=== PATIENT | female | born 1975 | race Caucasian/White ===

== ENCOUNTER 2020-07-21 18:10 | Emergency (ER) | payer OTHER, SELFPAY ==
[2020-07-21 19:38] VITALS: BP 143/69; PULSE 69; RESP 18; TEMP 37.1; O2SAT 100; BMI 29.0
--- NOTE | 2020-07-21 20:46 | ED_ITS ---
HPI - Extremity Problem General Chief complaint: Extremity Injury, Upper Stated complaint: CAST REMOVAL Time Seen by Provider: 07/21/20 20:46 History of Present Illness HPI Narrative: patient has a left cast that she got wet called the orthopedic doctor and referred to the emergency department to remove it and place a new splint. Patient with a history of 1st digit fracture. No pain no trauma Related Data Allergies Allergy/AdvReac Type Severity Reaction Status Date / Time morphine Allergy Unknown Dizziness Verified 07/21/20 19:41 Review of Systems Review of Systems: Constitutional : No Weight loss, No Fever, No Chills, No Night Sweats, No Fatigue, No Malaise ENT/Mouth : No Hearing loss, No Ear Pain, No Nasal Congestion, No Sinus Pain, No Hoarseness, No sore throat, No Rhinorrhea, No Swallowing Difficulty Eyes: No Eye Pain, No Swelling, No Redness, No Foreign Body, No Discharge, No Vision Changes Cardiovascular : No Chest Pain, No SOB, No Dyspnea on Exertion, No Orthopnea, No Edema, No Palpitations Respiratory : No Cough, No Sputum, No Wheezing, No Smoke Exposure, No Dyspnea Gastrointestinal : No Nausea, No Vomiting, No Diarrhea, No Constipation, No abdominal Pain, No Hematochezia, No Melena Genitourinary : no irregular bleeding, No Dysuria, No Urinary Frequency, No Hematuria, No Urinary Incontinence, No Urgency, No Flank Pain, No Urinary Flow Changes, No Hesitancy Musculoskeletal : No joint pain, No Myalgias, No Joint Swelling Skin : No Skin Lesions, No rash Neuro : No Weakness, No Numbness, No Paresthesias, No Loss of Consciousness, No Dizziness, No Headache Psych : No Anxiety/Panic, No Depression, No SI/HI/AH/VH, No Social Issues, Heme/Lymph: No Bruising, No Bleeding,No Lymphadenopathy Endocrine : No Polyuria, No Polydipsia, No Temperature Intolerance Yes all other systems are reviewed and are negative PMFSH Past Medical History Medical History Disorder of ligament of foot Rotator cuff arthropathy of both shoulders Surgical History Total knee replacement status Social History Social History Alcohol intake: never Smoked in Last 30 Days: No Use of substances other than those prescribed or required for medical reasons: No Advance Directives: No Advance Directives Information Provided: Yes Physical Exam Vital Signs and I&O and Narrative: Vital Signs and I&O: Vital Signs Temp 98.7 F 07/21/20 19:38 Pulse 69 07/21/20 19:38 Resp 18 07/21/20 19:38 BP 143/69 H 07/21/20 19:38 Pulse Ox 100 07/21/20 19:38 Intake & Output 07/21/20 07/21/20 07/22/20 06:59 18:59 06:59 Weight 83.915 kg Body Mass Index 29.0 reviewed Appearance: Alert. Oriented X3. No acute distress. Eyes: Pupils equal, round and reactive to light. ENT: Pharynx normal. Neck: Normal inspection. Neck supple. CVS: Normal heart rate and rhythm. Pulses normal. Respiratory: No respiratory distress. Breath sounds normal. Abdomen: Soft and nontender. Skin: Skin warm and dry. Normal skin color. Normal skin turgor. Extremities: No lower extremity edema. No lower extremity edema. left arm with neurovascularly intact. Left cast in place. No erythema Neuro: Oriented X 3. No motor deficit. No sensory deficit. Procedures Cast Removal Reason for procedure: wet Cut saw used: Yes Cast procedure: removal Post Removal Neuro Exam: intact Post Removal Vascular Exam: intact Patient Tolerated Procedure: well Orthopedic Splinting/Casting Injury #1: Side: left Upper Extremity Injury Location: hand Upper Extremity Immobilizer: thumb spica Additional Comments: post splint neurovascular intact. Was placed by tech Discharge Plan Discharge Clinical Impression: Cast removal Patient Disposition: Home, Self-Care Instructions: Cast Care (ED) Additional Instructions: Thank you for visiting the emergency department today. If your symptoms worsen or do not resolve completely please return to the emergency department immediately or call 911. if he have any questions please call your primary care physician please see the orthopedic doctor tomorrow for splint removal and cast placement Referrals: [facility] [Provider Group] - 2 days Interventions: ED Discharge Assessment Last Done: 07/21/20 21:19 Discharge Date/Time: 07/21/20 21:25
--- NOTE | 2020-07-21 20:50 | PC.NURSE ---
PT CASTE REMOVED BY DR JC AT BEDSIDE THUMB SPICA ORDERED.
== END 2020-07-21 21:25 | disposition home or self-care (01) ==
PROVIDERS: Emergency Provider Emergency Medicine
DX: S69.92XA Unspecified injury of left wrist, hand and finger(s), initial encounter (principal); X58.XXXA Exposure to other specified factors, initial encounter; Y93.9 Activity, unspecified; Y92.9 Unspecified place or not applicable; Y99.9 Unspecified external cause status
CPT/HCPCS: 29125; 99284

== ENCOUNTER → 2020-08-11 09:18 | Outpatient (BNVA) | payer OTHER, SELFPAY | PROVIDERS: Visit Provider Orthopaedic Surgery | DX: M17.12 Unilateral primary osteoarthritis, left knee (principal); Z88.6 Allergy status to analgesic agent | CPT/HCPCS: 20610; 99212; J1040 ==

== ENCOUNTER → 2020-08-24 11:33 | Outpatient (BNVA) | payer OTHER, SELFPAY | PROVIDERS: Visit Provider Orthopaedic Surgery | DX: Z76.89 Persons encountering health services in other specified circumstances (principal) ==

== ENCOUNTER 2022-11-03 12:55 | Outpatient (REF) | payer OTHER, SELFPAY ==
--- NOTE | ~2022-11-03 | XR_ITS ---
EXAMINATION: XR KNEE, RIGHT XR KNEE, LEFT XR KNEE AP STANDING CLINICAL INFORMATION: Pain. COMPARISON: Radiographs dated 05/16/2019. TECHNIQUE: Lateral and axial views of the right knee were obtained. Lateral and axial views of the left knee were obtained. AP bilateral standing view of the knees was obtained. FINDINGS: Prosthetic components of the right total knee arthroplasty are appropriately aligned without periprosthetic fracture or lucency. No component migration. No joint effusion. The lateral and medial joint space compartments of the left knee are well-maintained. No fracture or dislocation is seen. There is no significant varus or valgus configuration noted bilaterally. XR/XR knee RT 2V IMPRESSION: 1. Appropriate alignment of the right total knee arthroplasty without evidence of complications. 2. Unremarkable views of the left knee. 3. No significant varus or valgus configuration is seen bilaterally.
--- NOTE | ~2022-11-03 | XR_ITS ---
EXAMINATION: XR KNEE, RIGHT XR KNEE, LEFT XR KNEE AP STANDING CLINICAL INFORMATION: Pain. COMPARISON: Radiographs dated 05/16/2019. TECHNIQUE: Lateral and axial views of the right knee were obtained. Lateral and axial views of the left knee were obtained. AP bilateral standing view of the knees was obtained. FINDINGS: Prosthetic components of the right total knee arthroplasty are appropriately aligned without periprosthetic fracture or lucency. No component migration. No joint effusion. The lateral and medial joint space compartments of the left knee are well-maintained. No fracture or dislocation is seen. There is no significant varus or valgus configuration noted bilaterally. XR/XR knee standing BI IMPRESSION: 1. Appropriate alignment of the right total knee arthroplasty without evidence of complications. 2. Unremarkable views of the left knee. 3. No significant varus or valgus configuration is seen bilaterally.
--- NOTE | ~2022-11-03 | XR_ITS ---
EXAMINATION: XR KNEE, RIGHT XR KNEE, LEFT XR KNEE AP STANDING CLINICAL INFORMATION: Pain. COMPARISON: Radiographs dated 05/16/2019. TECHNIQUE: Lateral and axial views of the right knee were obtained. Lateral and axial views of the left knee were obtained. AP bilateral standing view of the knees was obtained. FINDINGS: Prosthetic components of the right total knee arthroplasty are appropriately aligned without periprosthetic fracture or lucency. No component migration. No joint effusion. The lateral and medial joint space compartments of the left knee are well-maintained. No fracture or dislocation is seen. There is no significant varus or valgus configuration noted bilaterally. XR/XR knee LT 2V IMPRESSION: 1. Appropriate alignment of the right total knee arthroplasty without evidence of complications. 2. Unremarkable views of the left knee. 3. No significant varus or valgus configuration is seen bilaterally.
== END 2022-11-03 12:56 | disposition home or self-care (01) ==
LOC: HO.HOSX 12:55
PROVIDERS: Visit Provider Physician Assistant
DX: M17.12 Unilateral primary osteoarthritis, left knee (principal); M22.2X2 Patellofemoral disorders, left knee; M25.561 Pain in right knee
CPT/HCPCS: 73560; 73565; 99212

== ENCOUNTER 2022-11-15 07:21 | Outpatient (REF) | payer OTHER, SELFPAY ==
--- NOTE | ~2022-11-15 | MR_ITS ---
EXAMINATION: MR KNEE WITHOUT CONTRAST, LEFT CLINICAL INFORMATION: Severe left knee pain with instability. Pain and swelling. Osteoarthritis. COMPARISON: Most recent left knee radiographs dated 11/03/2022. TECHNIQUE: MRI of the knee without contrast was performed using routine sequences on a high-field scanner. FINDINGS: MENISCI: Medial Meniscus: Intact. Lateral Meniscus: Increased T2 signal along the tibial articular surface and inner margin of the posterior horn and root, consistent with irregular tearing. LIGAMENTS: Cruciate: Intact. Collateral: Intact. EXTENSOR MECHANISM: Intact quadriceps and patellar tendons. Normal patellofemoral alignment. ARTICULAR CARTILAGE/BONE: Patellofemoral Compartment: Full-thickness articular cartilage fissuring with underlying subchondral cystic change at the inferior aspect of the patellar median ridge. Central trochlea full-thickness articular cartilage loss with signal heterogeneity. Tiny marginal osteophytes. Medial Compartment: Mild articular cartilage signal heterogeneity with tiny marginal osteophytes. Lateral Compartment: Mild articular cartilage signal heterogeneity with tiny marginal osteophytes. Degenerative cystic change within the tibial spine. JOINT FLUID AND BURSAE: Trace joint effusion and trace Rahman's cyst. MR/MR knee LT wo con IMPRESSION: 1. Irregular tearing along the tibial articular surface and inner margin of the lateral meniscus posterior horn and root. 2. Mild tricompartmental osteoarthritis. Trace joint effusion and trace Rahman's cyst.
== END 2022-11-15 07:22 | disposition home or self-care (01) ==
LOC: HO.MRI 07:21
PROVIDERS: Visit Provider Physician Assistant
DX: M17.12 Unilateral primary osteoarthritis, left knee (principal); M23.92 Unspecified internal derangement of left knee
CPT/HCPCS: 73721

== ENCOUNTER → 2022-11-23 10:15 | Outpatient (BNVA) | payer OTHER, SELFPAY | PROVIDERS: Visit Provider Orthopaedic Surgery | DX: M17.12 Unilateral primary osteoarthritis, left knee (principal); M54.16 Radiculopathy, lumbar region; Z96.651 Presence of right artificial knee joint | CPT/HCPCS: 99212 ==

== ENCOUNTER → 2023-02-26 09:44 | Outpatient (BNVA) | payer OTHER, SELFPAY | PROVIDERS: Visit Provider Orthopaedic Surgery | DX: M22.42 Chondromalacia patellae, left knee (principal); M54.16 Radiculopathy, lumbar region; Z96.659 Presence of unspecified artificial knee joint | CPT/HCPCS: 99212 ==

== ENCOUNTER 2023-03-21 11:53 | Day surgery (SDC) | payer OTHER, SELFPAY ==
--- NOTE | 2023-03-20 09:50 | HO.ANESPROP2 ---
Documented by User: Coleen Belcher NP 03/20/23 09:51 HPI - Anesthesia Eval Consult details Narrative: 48yo F for Left Knee Arthroscopy PMFSH Active Problems Active Problems: All Active Problems (Updated 02/26/23 @ 11:39 by Shane Patel) Chondromalacia of left patellofemoral joint (Acute) Internal derangement of left knee (Acute) Lumbar radiculopathy (Acute) Patellofemoral syndrome, left (Acute) Hx of total knee arthroplasty (Acute) Internal derangement of knee (Acute) Primary osteoarthritis of left knee (Acute) Past Medical History Medical History Disorder of ligament of foot Rotator cuff arthropathy of both shoulders Surgical History Surgical History Hx of hand surgery (~01/2023) Total knee replacement status Social History Social History Alcohol intake: never Patient Tobacco Use Status: Never used Tobacco Advance Directives: No Advance Directives Information Provided: Yes Current occupational status: unemployed Current occupation: Right Handed Meds Allergies Allergy/AdvReac Type Severity Reaction Status Date / Time morphine Allergy Unknown Dizziness Verified 11/03/22 13:18 lidocaine Allergy burning of Verified 11/03/22 13:19 skin Exam Exam Date and Time: March 20, 2023 0950 Assessment and Plan Assessment Anesthesia Assessment: Chart Reviewed Documented by User: Orquidea Hugo MD 03/21/23 14:58 PMFSH Past Medical History Medical History Disorder of ligament of foot Rotator cuff arthropathy of both shoulders Family History Family history of problems with anesthesia: No Surgical History Surgical History Hx of hand surgery (~01/2023) Total knee replacement status History of Problems with Anesthesia: Yes (ponv, does not want scop patch ) Social History Social History Alcohol intake: never Patient Tobacco Use Status: Never used Tobacco Advance Directives: No Advance Directives Information Provided: Yes Current occupational status: unemployed Current occupation: Right Handed Meds Allergies Allergy/AdvReac Type Severity Reaction Status Date / Time morphine Allergy Unknown Dizziness Verified 11/03/22 13:18 lidocaine Allergy burning of Verified 11/03/22 13:19 skin Exam Airway Mallampati Class: III TM Dist: <=3cm Neck ROM: Full Heart: rrr Lungs: cta Assessment and Plan Assessment Anesthesia Assessment: Anesthesia Plan Discussed Final Anesthetic Review Family History of Problems with Anesthesia: No History of Problems with Anesthesia: Yes (ponv, does not want scop patch ) NPO: Yes ASA Class: II Final Preanesthetic Review: No Changes in Pt Med Stat, Meds/Allgs Chart Reviewed, Consent Obtained/Reviewed and Anes Risks/Benef Reviewed Patient Risk: Low Procedure Risk: Low Anesthetic Plan Anesthetic Plan: GA Disposition: Standard PACU
[2023-03-21] VITALS (8 sets, daily range): BP systolic 120–132; BP diastolic 73–89; PULSE 81–96; RESP 16–18; TEMP 36.7–37.4; O2SAT 93–98; BMI 29.2
[2023-03-21 12:26] LABS: UPreg QC Valid YES; Urine Pregnancy NEGATIVE (NEGATIVE)
[2023-03-21] MEDS: Lactated Ringers 1,000 ML 100 ML IVCONT (12:42)
--- NOTE | 2023-03-21 14:56 | MHC.SHP ---
Pre-Procedural Eval Section A Date of Service: 03/21/23 The patient is an INPATIENT: No Changes since office visit: No Cold of Flu in the past 2 weeks, No New Medical Problems, No Changes in Medication and No Patient answered all questions The History & Physical has been completed within 30 days and I have reviewed it.: Yes Section B Chief Complaint: Chondromalacia, left knee Allergies: Allergies Allergy/AdvReac Type Severity Reaction Status Date / Time morphine Allergy Unknown Dizziness Verified 11/03/22 13:18 lidocaine Allergy burning of Verified 11/03/22 13:19 skin Plan I have reviewed the history and physical and performed a pertinent physical examination on my patient. No changes have occurred unless specified. Time Spent With Patient Time: Total time managing care of this patient today ____ minutes.
--- NOTE | 2023-03-21 16:05 | P.BOP_ITS ---
Brief Operative Note Date of Service: 03/21/23 Pre-op diagnosis: Left PF chondromalacia Post-op diagnosis: other (Left PF OA) Procedure: Chondroplasty left knee Surgeon: Germain Whaley MD Anesthesia: GETA and local Was an Manufacturing Maintenance Manager used for this Procedure?: No Estimated blood loss (mL): 1 Tourniquet time (min): 13 IV fluids (mL): 500 Pathology: none sent Condition: stable Disposition: PACU
--- NOTE | 2023-03-21 16:09 | P.OP_ITS ---
Operative Note Operative Note Date of Service: 03/21/23 Narrative: Date of Service: 03/21/23 Pre-op diagnosis: Left PF chondromalacia Post-op diagnosis: other (Left PF OA) Procedure: Chondroplasty left knee Surgeon: Germain Whaley MD Anesthesia: GETA and local Was an Communication Specialist used for this Procedure?: No Estimated blood loss (mL): 1 Tourniquet time (min): 13 IV fluids (mL): 500 Pathology: none sent Condition: stable Disposition: PACU Procedure in detail: Patient was brought to the operating room placed supine on the arthroscopic table and prepped and draped in standard sterile fashion. A time-out was called to identify proper site proper procedure proper surgeon and IV antibiotics per weight were administered. I began by exsanguinating the limb and insufflating tourniquet to 300 mm Hg. Then made a standard anterolateral stab incision. knee was insufflated with water and 30 degree arthroscope was placed. There was grade 3 and 4 changes to the lateral half of the central patellar facet. THere was corresponding changes to the trochlea. The suprapatellar pouch was clean and the gutters were clean. I descended into the medial compartment where I made my medial portal under direct visualization. There was a normal body and posterior horn of the medial meniscus. The root was intact and there were no changes the ana articualr cartialge in the medial comaprtment. with some scattered grade 2 changes throughout the medial compartment. The notch was examined and the ACL was intact. I placed the leg in a [id number] position and entered the lateral compartment. There was very mild fraying of the posteromedial aspect of the meniscus just adjacnt to the ACL. There was softening of the tibial plateau laterally with G1 fibrillations. I debrided the meniscal fraying with a shaver. I then returned to the anterior compartment. I used a shave and the ablation device to remove loose cartilage and stabilize the trochlear cartilage adjacent to the defect. Final pictures were taken and all instrumentation and closed the portals with skin glue. 25 mL of 2% bupivacaine with epinephrine was injected into the joint and the surrounding soft tissues. Patient was then placed in sterile dressing extubated brought recovery room stable condition. There were no known complications.
[2023-03-21] MEDS: ondansetron HCL 4 MG/2 ML VIAL IVPUSH (16:11)
[2023-03-21] MEDS: oxyCODONE HCl Immed Release 5 MG TABLET PO (16:14)
[2023-03-21] MEDS: fentaNYL citrate/PF 100 MCG/2 ML VIAL 25 MCG IVPUSH (16:16)
== END 2023-03-21 17:24 | disposition home or self-care (01) ==
LOC: HO.SSS 11:53
PROVIDERS: Nurse Practitioner; Visit Provider Orthopaedic Surgery
PROC: (CPT 29870; principal; 2023-03-21 14:00)
DX: M22.42 Chondromalacia patellae, left knee (principal); M17.12 Unilateral primary osteoarthritis, left knee; M23.92 Unspecified internal derangement of left knee; Z96.651 Presence of right artificial knee joint; M54.16 Radiculopathy, lumbar region; Z88.8 Allergy status to other drugs, medicaments and biological substances
CPT/HCPCS: 29877; 81025; J0171; J0690; J1100; J2250; J2405; J2795; J3010

== ENCOUNTER → 2023-03-26 14:43 | Outpatient (BNVA) | payer OTHER, SELFPAY | PROVIDERS: PCP Psychiatry & Neurology Psychiatry; Visit Provider Physician Assistant | DX: M22.42 Chondromalacia patellae, left knee (principal) | CPT/HCPCS: 99212 ==

== ENCOUNTER 2023-04-10 10:00 | Outpatient (RCR) | payer OTHER, SELFPAY ==
--- NOTE | 2023-03-29 16:12 | MHC.PT.EP ---
[facility] [place] Office [place] Office [place] Office [address] [phone] F: [phone] F: [phone] F: [phone] F: [phone] Physical Therapy Plan of Care Date of Evaluation: Date of Surgery: 03/21/23 Diagnosis: S/P L knee Chondromalacia patella L knee Assessment: Nicole is a 48 yo female s/p L . Pt presents on PT examination with impairments such as decreased L knee ROM, impaired L knee strength due to pain, altered gait pattern with B crutches, decreased L WB during gait, and knee joint pain anterior/posterior knee. Leading to functional limitations such a decreased activity tolerance, difficulty with standing, difficulty with sitting, interrupted sleep due to pain, inability to bend/squat. Pt to benefit from skilled PT to address aforementioned impairments and functional limitations. PT to include knee ROM, stretching, strengthening, gait training with LRAD, hot/cold pack, US, pt educations, HEP, and STM. Frequency and Duration: The patient will be seen 2x week for 6 weeks Short Term Goals: In 3 weeks... 1. Pt will be I with HEP demonstrated by 100% return demonstration to improve functional mobility 2. Pt will increase knee flexion ROM to 125 degrees to improve stair negotiation 3. Pt will improve knee extension ROM to 0 degrees in order to improve terminal stance during gait Manager Business Process Goals: In 6 weeks... 1. Pt will improve gross LLE strength by 1 MMT point in order to improve activity tolerance/endurance 2. Pt will be able to ambulate without use of crutches in order to regain normalized gait pattern and perform ADLs with I 3. Pt will be able to stand without crutches for 2 hours without rest breaks in order to return to work Treatment Plan: Modalities to reduce pain, spasms and effusion. Manual therapy to restore motion and function. Therapeutic exercise to improve strength and flexibility. Neuromuscular re-education for posture and balance. Therapeutic activities to return to functional activities of daily living. Electronically signed by: Ramya Colbert PT DPT Please sign and return to therapist. Thank you for your referral.
--- NOTE | 2023-05-03 11:33 | MHC.PT.DC ---
[facility] [place] Office [place] Office [place] Office [address]ie [address] [facility] [phone] F: [phone] F: [phone] F: [phone] F: [phone] Physical Therapy Discharge Report Diagnosis: S/P L knee Chondromalacia patella L knee Date of Surgery: 03/21/23 Date of Evaluation: 03/29/23 Date of Discharge: 05/03/23 Treatments to Date: 2 Cancellations to Date: 5 No Shows to Date: 3 Discharge Status: Visit Non-compliance Discharge Summary: Nicole attended only 1 treatment visit after her evaluation. Her last treatment with PT was on 04/10/23. She has had 5 cancelation and 3 no shows. Called pt to inform them about visit non compliance and therefore d/c from PT. Pt was very upset with this and hung up on lockstitch front maker. At this point of time she is being d/c from PT for non compliance. Electronically signed by: Ramya Colbert PT DPT Please sign and return to therapist. Thank you for your referral.
== END 2023-05-03 11:33 | disposition home or self-care (01) ==
LOC: HO.PT 10:00
PROVIDERS: PCP Psychiatry & Neurology Psychiatry; Visit Provider Physician Assistant
DX: M22.42 Chondromalacia patellae, left knee (principal); A31.2 Disseminated mycobacterium avium-intracellulare complex (DMAC)
CPT/HCPCS: 97110; 97112; 97116; 97161; 97162; 97530

== ENCOUNTER 2023-04-30 12:07 | Outpatient (AMB) | payer OTHER, SELFPAY ==
--- NOTE | 2023-04-30 12:19 | A.OFFVIS_ITS ---
Intake Intake Visit Reasons: PO LT Knee 03/21/23NE Intake Note: Nicole is a 48 year old female who presents today for a post operative appointment s/p Left Knee Arthroscopy 03/21/23. Patient reports that about a week ago she fell down basement stairs, and the left knee went under her and the right knee hyperextend. she is having more pain in the right knee than the left knee, complains of pain with walking and painful ROM. He has been utilizing ice and elevation. Allergies morphine Allergy (Unknown, Verified 04/30/23 12:20) Dizziness lidocaine Allergy (Verified 04/30/23 12:20) burning of skin HPI PO LT Knee 03/21/23NE HPI Details 48-year-old female who returns to the office today for post-op left knee , 03/21/[address] Whaley. She states that she sustained a fall down the basement stairs where her left knee went under her and the right knee hyperextended, about 1 week ago. She currently experiences more pain in her right knee than the left knee. Her pain is aggravated with ambulation and ROM. She is applying ice and elevation for her pain. [facility] Medical History Disorder of ligament of foot Rotator cuff arthropathy of both shoulders Surgical History Hx of hand surgery (~01/2023) Total knee replacement status Social History Alcohol intake: never Patient Tobacco Use Status: Never used Tobacco Current occupational status: unemployed Current occupation: Right Handed Review of Systems Const All systems reviewed & are unremarkable except as noted in HPI and below Physical Exam Extrem Other: Right knee: Surgical scare well headed. She has full ROM, no instability, no redness. She does have diffused tenderness over the anterior aspect of the knee. Left knee: Surgical portal sites are well healed. She has full ROM, no laxity, no diffused tenderness to palpation. Calf supple, nontender. NVI. Results Reviewed Results Reviewed: X-rays of the right knee obtained in the office today show total joint prosthesis intact without sign of loosening. No signs of fracture. Assessment & Plan Assessment & Plan (1) Chondromalacia of left patellofemoral joint: Code(s): M22.42 - Chondromalacia patellae, left knee (2) Hx of total knee arthroplasty: Comment: Right- 2013 by LORI Code(s): Z96.659 - Presence of unspecified artificial knee joint Plan I do not feel she has any acute injury from her fall. She will continue to rest, ice and elevate as needed. I did prescribe her Celebrex to take twice a day for the next 2 weeks for her acute flareups. She will continue working with physical therapy on her left knee and increase activity as tolerated. If symptoms do not subside in the next few weeks, I would like her to see us back for reevaluation, otherwise follow-up as needed. Orders: Orders XR knee RT 2V Today M25.569 - Pain in unspecified knee XR knee standing BI Today M25.561 - Pain in right knee, M25.562 - Pain in left knee Medications: New celecoxib (Celebrex) 200 mg PO BID 60 caps 3RF 30 days Patient Instructions: Scribed for Luis A Villanueva PA-C, by Ion Lozada medical officer psychiatry, on 04/30/2023 at 12:30 PM EST. I, Luis A Villanueva PA-C, have personally reviewed and agree with the information entered by the scribe. Coding Level of Care Code Global (11131) Diagnoses Chondromalacia of left patellofemoral joint M22.42 Hx of total knee arthroplasty Z96.659
== END 2023-04-30 14:09 | disposition home or self-care (01) ==
PROVIDERS: PCP Psychiatry & Neurology Psychiatry; Visit Provider Physician Assistant
DX: M22.42 Chondromalacia patellae, left knee (principal); Z96.659 Presence of unspecified artificial knee joint
CPT/HCPCS: 99024

== ENCOUNTER 2023-04-30 12:07 | Outpatient (REF) | payer OTHER, SELFPAY ==
--- NOTE | ~2023-04-30 | XR_ITS ---
Exams: AP standing both knees and 2 views right knee. HISTORY: Pain. COMPARISON: 11/03/2022 FINDINGS: Overall no sniffing change but no evidence for hardware failure in the right knee. There is small nonspecific effusion. Minor tibial spine spurring on the left. XR/XR knee RT 2V IMPRESSION: No evidence for hardware failure. Small nonspecific effusion.
--- NOTE | ~2023-04-30 | XR_ITS ---
Exams: AP standing both knees and 2 views right knee. HISTORY: Pain. COMPARISON: 11/03/2022 FINDINGS: Overall no sniffing change but no evidence for hardware failure in the right knee. There is small nonspecific effusion. Minor tibial spine spurring on the left. XR/XR knee standing BI IMPRESSION: No evidence for hardware failure. Small nonspecific effusion.
== END 2023-04-30 12:08 | disposition home or self-care (01) ==
LOC: HO.HOSX 12:07
PROVIDERS: PCP Psychiatry & Neurology Psychiatry; Visit Provider Physician Assistant
DX: Z47.1 Aftercare following joint replacement surgery (principal); M25.561 Pain in right knee; M22.42 Chondromalacia patellae, left knee; Z96.652 Presence of left artificial knee joint
CPT/HCPCS: 73560; 73565

== ENCOUNTER 2024-07-18 10:54 | Outpatient (AMB) | payer OTHER, SELFPAY ==
--- NOTE | 2024-07-18 11:50 | A.OFFVIS_ITS ---
Intake Visit Reasons: OV-LT Knee 03/21/23NE/severe pain Allergies morphine Allergy (Unknown, Verified 04/30/23 12:20) Dizziness lidocaine Allergy (Verified 04/30/23 12:20) burning of skin HPI HPI OV-LT Knee 03/21/23NE/severe pain: Details: 49-year-old female who returns to the office today for a follow-up of left knee , 03/21/[address] Whaley. She states she has pain in her knee. She has not had physical therapy for her knee. [facility] Medical History Disorder of ligament of foot Rotator cuff arthropathy of both shoulders Surgical History Hx of hand surgery (~01/2023) Total knee replacement status Social History Alcohol intake: never Patient Tobacco Use Status: Never used Tobacco Current occupational status: unemployed Current occupation: Right Handed Review of Systems Const All systems reviewed & are unremarkable except as noted in HPI and below Physical Exam Extrem Other: Left knee: Skin intact, no erythema or joint effusion. Tenderness along the medial and lateral joint line. Full ROM with crepitus. Negative Christi?s. No ligamentous laxity. NVI. ? Assessment & Plan Assessment & Plan (1) Primary osteoarthritis of left knee: Code(s): M17.12 - Unilateral primary osteoarthritis, left knee Category: Medical Plan We had a lengthy discussion about the extent of her osteoarthritis and options available which include surgical intervention. He is interested in pursuing Total knee arthroplasty to improve her functional capacity and daily activities. I explained to her the procedure in detail, the hospital stays and details about post op rehab and precautions. She does understand all this and would like to move forward. I did put her in contact with our Nurse Navigator, Natalie, who will set her up with pre op planning and book accordingly. All questions were answered. Orders: Orders XR knee LT 3V Today M25.562 - Pain in left knee XR knee RT 1V Today M25.561 - Pain in right knee Patient Instructions: Scribed for Bladimir-Octavia Villanueva PA-C, by Ion Lozada, medical pathologist, on 07/18/2024 at 11:15 AM EST.? I, Luis A Villanueva PA-C, have personally reviewed and agree with the information entered by the scribe. Coding Level of Care Code Est Pt Level 4 (10598) Complex EM visit Add On G2211 Diagnoses Primary osteoarthritis of left knee M17.12
== END 2024-07-18 12:45 | disposition home or self-care (01) ==
PROVIDERS: PCP Psychiatry & Neurology Psychiatry; Visit Provider Physician Assistant
DX: M17.12 Unilateral primary osteoarthritis, left knee (principal)
CPT/HCPCS: 99214; G2211

== ENCOUNTER 2024-07-18 11:48 | Outpatient (REF) | payer OTHER, SELFPAY | END 2024-07-18 11:49 | disposition home or self-care (01) | LOC: HO.HOSX 11:48 | PROVIDERS: Visit Provider Physician Assistant | DX: M25.561 Pain in right knee (principal); M25.562 Pain in left knee; M17.12 Unilateral primary osteoarthritis, left knee | CPT/HCPCS: 73560; 73562; 99212 ==

== ENCOUNTER → 2024-09-22 08:46 | Outpatient (BNVA) | payer OTHER, SELFPAY | PROVIDERS: PCP Nurse Practitioner Family | DX: Z01.818 Encounter for other preprocedural examination (principal) ==

== ENCOUNTER 2024-10-16 09:47 | Outpatient (AMB) | payer OTHER, SELFPAY ==
--- NOTE | 2024-10-16 08:37 | MHC.OFFVIS ---
Vital Signs 10/16/24 10:02 Height 5 ft 7 in Weight 194 lb BMI 30.4 Intake Visit Reasons: Pre-Op: L TKA w/NE 10/21/24 Intake Note: Nicole a 49 year old female who presents today for a preoperative left TKA, DOS 10/21/24 NE. Pain management agreement reviewed and signed. Allergies bee pollen [bee stings] Allergy (Severe, Verified 10/16/24 10:02) Anaphylaxis lidocaine Allergy (Severe, Verified 10/16/24 10:02) 2nd degree burn of skin morphine Allergy (Intermediate, Verified 10/16/24 10:02) Dizziness/hallucinations Medication List - Last Reconciled 10/16/24 by Luis A Villanueva PA-C leg brace (Knee Support Brace) Playmaker ll , Spacer, wrap , L multivitamin 1 tab PO QAM walker Folding Front wheeled walker HPI Comments Details: Ms Enriquez presents to the office today for preop visit. She is scheduled for left total knee arthroplasty with Dr. Whaley. She continues to have ongoing pain and difficulty with ambulation in the left knee, which is affecting her quality of life; therefore, she has elected to move forward with surgery. [facility] Medical History (Updated 09/23/24 @ 12:02 by Shira Goncalves RN) PONV (postoperative nausea and vomiting) Arthritis Disorder of ligament of foot Rotator cuff arthropathy of both shoulders Surgical History Hx of hemorrhoidectomy Hx of left knee surgery Hx of rotator cuff surgery Hx of foot surgery History of total right knee replacement Hx of hand surgery (~01/2023) Social History Are you a primary health care legal assistant to a significant other at home: No Do you presently have visiting nurse or other home services: No Alcohol intake: never Patient Tobacco Use Status: Never used Tobacco Current occupational status: unemployed Current occupation: Right Handed Review of Systems Const All systems reviewed & are unremarkable except as noted in HPI and below Physical Exam Vital Signs: BMI result Body Mass Index 30.4 Const General: cooperative, healthy appearing, comfortable, no acute distress, well developed and alert Orientation/consciousness: patient oriented x3 HEENT Head: Yes normal to inspection, Yes normocephalic and Yes atraumatic Eyes General: appearance normal, both eyes and all related structures Neck Neck: Yes normal visual inspection and Yes no lymphadenopathy Resp Effort & Inspection: normal respiratory effort and able to speak in complete sentences Cardio Rate: regular rate Peripheral pulses: Peripheral pulses 2+ throughout GI Inspection: Yes normal to inspection Palpation (GI): Soft to palpation Skin General skin exam: no rashes or lesions noted Neuro General: patient oriented x3 Extrem Other: Left knee: Skin intact, no erythema or joint effusion. Tenderness along the medial and lateral joint line. Full ROM with crepitus. Negative Christi?s. No ligamentous laxity. NVI. ? Psych Appearance: grossly normal Mental Status: mental status grossly normal Results Reviewed Results Reviewed: X-rays of the left knee obtained in the office today for surgical planning. Assessment & Plan Assessment & Plan (1) Primary osteoarthritis of left knee: Code(s): M17.12 - Unilateral primary osteoarthritis, left knee Category: Medical Plan: I discussed in detail the procedure and what to expect pre and post operatively. We discussed the risks, benefits and alternatives to the surgery as well as the rehabilitation course. The risks; which include, but are not limited to infection, bleeding, nerve injury, ongoing pain, swelling, and stiffness, perioperative risk of injury to bones and soft tissues, and blood clots. I?ve answered all questions and with their understanding they have consented to move forward with Left total knee arthroplasty with Dr. Whaley Orders: Orders XR knee LT 3V Today M25.562 - Pain in left knee XR knee RT 1V Today M25.561 - Pain in right knee PT Evaluation and Treatment Today Z96.652 - Presence of left artificial knee joint Coding Level of Care Code Est Pt Level 3 (72024) Complex EM visit Add On G2211 Diagnoses Primary osteoarthritis of left knee M17.12
[2024-10-16 10:02] VITALS: BMI 30.4
== END 2024-10-16 10:17 | disposition home or self-care (01) ==
PROVIDERS: PCP Nurse Practitioner Family; Visit Provider Physician Assistant
DX: M17.12 Unilateral primary osteoarthritis, left knee (principal)
CPT/HCPCS: 99213; G2211

== ENCOUNTER 2024-10-16 10:56 | Outpatient (REF) | payer OTHER, SELFPAY ==
--- NOTE | ~2024-10-16 | XR_ITS ---
EXAMINATION: XR KNEE, LEFT CLINICAL INFORMATION: M25.562 - Pain in left knee COMPARISON: X-ray dated July 18, 2024. AP view dated October 16, 2024. TECHNIQUE: 2 views of the left knee. FINDINGS: Submitted for interpretation on October 22, 2024. No acute cortical disruption or malalignment. No lytic or blastic lesions. No suprapatellar bursa joint effusion. No subcutaneous emphysema. Asymmetric joint space narrowing, medial compartment. XR/XR knee LT 3V IMPRESSION: Medial compartment osteoarthrosis without acute fracture or dislocation. Electronically signed by: Jimy Marvin MD 10/22/2024 08:29 AM [facility]
--- NOTE | ~2024-10-16 | XR_ITS ---
EXAMINATION: XR KNEE, RIGHT CLINICAL INFORMATION: M25.561 - Pain in right knee COMPARISON: X-ray dated July 18, 2024. TECHNIQUE: Two views of the right knee. FINDINGS: Metallic prosthesis with a femoral and tibial component well-seated in the osseous structures. The prosthesis is intact. The alignment is normal. There is no loosening. XR/XR knee RT 1V IMPRESSION: Total right knee arthroplasty prosthesis without fracture or dislocation. Electronically signed by: Jimy Marvin MD 10/22/2024 08:26 AM [facility]
== END 2024-10-16 10:57 | disposition home or self-care (01) ==
LOC: HO.HOSX 10:56
PROVIDERS: Visit Provider Physician Assistant
DX: M25.562 Pain in left knee (principal); M25.561 Pain in right knee; M17.12 Unilateral primary osteoarthritis, left knee
CPT/HCPCS: 73560; 73562; 99212

== ENCOUNTER 2024-10-21 05:51 | Day surgery (SDC) | payer OTHER, SELFPAY ==
[2024-09-23 12:05] VITALS: BP 119/57; PULSE 77; RESP 20; O2SAT 99; BMI 30.5
--- NOTE | 2024-09-23 12:22 | HO.ANESPROP2 ---
Documented by User: Coleen Belcher NP 09/23/24 12:27 HPI - Anesthesia Eval Consult details Narrative: 49yo F for Left Knee Replacement Total, 10/21/23 No recent illness No CP/SOB with high activity tolerance s/p R TKA 2014 Hx PONV - zofran effective, scop does not work PMFSH Active Problems Active Problems: All Active Problems Chondromalacia of left patellofemoral joint (Acute) Internal derangement of left knee (Acute) Lumbar radiculopathy (Acute) Patellofemoral syndrome, left (Acute) Hx of total knee arthroplasty (Acute) Internal derangement of knee (Acute) Primary osteoarthritis of left knee (Acute) Past Medical History Medical History PONV (postoperative nausea and vomiting) Arthritis Disorder of ligament of foot Rotator cuff arthropathy of both shoulders Family History Family history of problems with anesthesia: No Surgical History Surgical History Hx of hemorrhoidectomy Hx of left knee surgery Hx of rotator cuff surgery Hx of foot surgery History of total right knee replacement Hx of hand surgery (~01/2023) History of Problems with Anesthesia: Yes (ponv, does not want scop patch ) Social History Social History Are you a primary health care administrator to a significant other at home: No Do you presently have visiting nurse or other home services: No Alcohol intake: never Patient Tobacco Use Status: Never used Tobacco Use of substances other than those prescribed or required for medical reasons: No Have you been hit, kicked, punched, or otherwise hurt by someone within the past year? If so, by whom?: No Spiritual Healthcare Practices: none Pentecostalism Healthcare Practices: Yazidism Cultural Healthcare Practices: none Are you DNR?: No Advance Directives: No (states spouse is primary contact) Advance Directives Information Provided: Yes (as above noted) Advance Directives on File: No Recently lost weight without trying: No Eating poorly because of decreased appetite: No Nutrition Risks: No Nutritional Risk Patient : No FDLMP: 08/20/24 : No Poor oral hygiene: No (one broken tooth left upper side) Current occupational status: unemployed Current occupation: Right Handed Meds Allergies Allergy/AdvReac Type Severity Reaction Status Date / Time bee pollen [bee stings] Allergy Severe Anaphylaxis Verified 10/16/24 10:02 lidocaine Allergy Severe 2nd degree Verified 10/16/24 10:02 burn of skin morphine Allergy Intermediate Dizziness/h Verified 10/16/24 10:02 allucinatio ns Home Medications ?Medication ?Instructions ?Recorded ?Confirmed ?Last Taken ?Type multivitamin 1 tab PO QAM 09/23/24 10/16/24 10/20/24 History Exam Height,Weight and Vital Signs: Height 5 ft 7 in Weight 88.451 kg Last Vital Signs Pulse 77 09/23/24 12:05 Resp 20 09/23/24 12:05 BP 119/57 L 09/23/24 12:05 Pulse Ox 99 09/23/24 12:05 O2 Del Method Room Air 09/23/24 12:05 Airway Mallampati Class: III TM Dist: >3cm Neck ROM: Full Loose/Missing/Broken Teeth: Yes (1 x broken left upper molar) Heart: RRR Lungs: CTAB Assessment and Plan Assessment Anesthesia Assessment: Anesthesia Plan Discussed and PAT Visit Final Anesthetic Review Family History of Problems with Anesthesia: No History of Problems with Anesthesia: Yes (ponv, does not want scop patch ) Documented by User: Orquidea Hugo MD 10/21/24 08:43 [facility] Past Medical History Medical History PONV (postoperative nausea and vomiting) Arthritis Disorder of ligament of foot Rotator cuff arthropathy of both shoulders Surgical History Surgical History Hx of hemorrhoidectomy Hx of left knee surgery Hx of rotator cuff surgery Hx of foot surgery History of total right knee replacement Hx of hand surgery (~01/2023) Social History Social History Are you a primary health care administrator to a significant other at home: No Do you presently have visiting nurse or other home services: No Alcohol intake: never Patient Tobacco Use Status: Never used Tobacco Use of substances other than those prescribed or required for medical reasons: No Have you been hit, kicked, punched, or otherwise hurt by someone within the past year? If so, by whom?: No Spiritual Healthcare Practices: none Pentecostalism Healthcare Practices: Yazidism Cultural Healthcare Practices: none Are you DNR?: No Advance Directives: No (states spouse is primary contact) Advance Directives Information Provided: Yes (as above noted) Advance Directives on File: No Recently lost weight without trying: No Eating poorly because of decreased appetite: No Nutrition Risks: No Nutritional Risk Patient : No FDLMP: 08/20/24 : No Poor oral hygiene: No (one broken tooth left upper side) Current occupational status: unemployed Current occupation: Right Handed Meds Allergies Allergy/AdvReac Type Severity Reaction Status Date / Time bee pollen [bee stings] Allergy Severe Anaphylaxis Verified 10/16/24 10:02 lidocaine Allergy Severe 2nd degree Verified 10/16/24 10:02 burn of skin morphine Allergy Intermediate Dizziness/h Verified 10/16/24 10:02 allucinatio ns Home Medications ?Medication ?Instructions ?Recorded ?Confirmed ?Last Taken ?Type multivitamin 1 tab PO QAM 09/23/24 10/16/24 10/20/24 History Assessment and Plan Final Anesthetic Review NPO: Yes ASA Class: II Final Preanesthetic Review: No Changes in Pt Med Stat, Meds/Allgs Chart Reviewed, Consent Obtained/Reviewed and Anes Risks/Benef Reviewed Patient Risk: Intermediate Procedure Risk: Intermediate Anesthetic Plan Anesthetic Plan: GA, Spinal and Regional Block Disposition: Standard PACU
[2024-09-23 14:12] LABS: MRSA Nasal PCR NEGATIVE (Negative); SA Nasal PCR POSITIVE (Negative)
[2024-10-21] VITALS (15 sets, daily range): BP systolic 115–137; BP diastolic 64–88; PULSE 74–97; RESP 12–20; TEMP 36.1–37.1; O2SAT 95–98; BMI 30.5; BMI 29.6
--- NOTE | ~2024-10-21 | XR_ITS ---
EXAMINATION: XR KNEE, LEFT CLINICAL INFORMATION: lt tka COMPARISON: None available. TECHNIQUE: Three views of the left knee. FINDINGS: There is a total left knee arthroplasty with prosthetic components in satisfactory alignment. Immediate postoperative changes with surgical charley along the anterior knee and gas within the joint spaces noted. No visible fracture visualized. XR/XR knee LT 2V IMPRESSION: Immediate postoperative changes following total knee arthroplasty is noted. The prosthetic components are in satisfactory alignment. Electronically signed by: Nelson Salas MD 10/21/2024 12:05 PM [facility]
[2024-10-21 06:44] LABS: UPreg QC Valid YES; Urine Pregnancy NEGATIVE (NEGATIVE)
[2024-10-21 06:53] LABS: Hematocrit 35.6 % (37.0-47.0); Hemoglobin 11.5 g/dl (12.0-16.0)
[2024-10-21] MEDS: Lactated Ringers 1,000 ML 100 ML IVCONT ×3 (06:58→22:35)
--- NOTE | 2024-10-21 07:38 | MHC.SHP ---
Pre-Procedural Eval Section A - 24 Hr Update-Section A only Date of Service: 10/21/24 The patient is an INPATIENT: No Changes since office visit: No Cold of Flu in the past 2 weeks, No New Medical Problems, No Changes in Medication and No Patient answered all questions The patient has been examined within 24 hours of the surgical procedure. The History & Physical has been completed within 30 days and I have reviewed it.: Yes Section B - Complete if H&P > 30 days Chief Complaint: Unilateral primary osteoarthritis, left knee Allergies: Allergies Allergy/AdvReac Type Severity Reaction Status Date / Time bee pollen [bee stings] Allergy Severe Anaphylaxis Verified 10/16/24 10:02 lidocaine Allergy Severe 2nd degree Verified 10/16/24 10:02 burn of skin morphine Allergy Intermediate Dizziness/h Verified 10/16/24 10:02 allucinatio ns Plan I have reviewed the history and physical and performed a pertinent physical examination on my patient. No changes have occurred unless specified. Time Spent With Patient Time: Total time managing care of this patient today ____ minutes.
--- NOTE | 2024-10-21 10:16 | PM.OP ---
Brief Operative Note Date of Service: 10/21/24 Pre-op diagnosis: left knee OA Post-op diagnosis: same Procedure: Left TKA Implants: [place] Triathlon press fit 12/15/28a/9cr Surgeon: Germain Whaley MD Anesthesia: regional and spinal Was an Tire Retreader used for this Procedure?: Yes Tire Retreader: Luis A Villanueva Estimated blood loss (mL): 25 Tourniquet time (min): 105 IV fluids (mL): 1,200 Pathology: other Condition: stable Disposition: PACU
--- NOTE | 2024-10-21 12:30 | W.PM.OPN ---
Operative Note Operative Note Date of Service: 10/21/24 Narrative: Date of Service: 10/21/24 Pre-op diagnosis: left knee OA Post-op diagnosis: same Procedure: Left TKA Implants: [place] Triathlon press fit 12/15/28a/9cr Surgeon: Germain Whaley MD Anesthesia: regional and spinal Was an Retail Banking Manager used for this Procedure?: Yes Retail Banking Manager: Luis A Villanueva Estimated blood loss (mL): 25 Tourniquet time (min): 105 IV fluids (mL): 1,200 Pathology: other Condition: stable Disposition: PACU Procedure in detail: The patient was brought to the operating room and prepped and draped in standard sterile fashion. A time-out was called to identify proper site proper procedure proper surgeon and IV antibiotics were administered. 1 g of IV tranexamic acid was administered. I began by making a midline incision to the retinaculum and performed a medial parapatellar arthrotomy. The patella was translated laterally and the knee was flexed up. The medial and anterior compartment were notable for severe arthritic changes. I performed a small medial peel and resected the infrapatellar fat pad. Dallas's line was then used to drill my intramedullary femoral guide and my distal femur cut of 10 mm was made in 5 degrees of valgus while protecting the soft tissues. I then measured a # 3 femur and placed my cutting guide and made my anterior posterior and chamfer cuts in 3 deg ER while protecting the soft tissues at all times. Once I was satisfied with my cuts I turned my attention to the tibia. I removed the meniscus medially and laterally and , using an external cutting guide, in line with the tibial crest and the third ray, I made my distal tibial cut in 3 deg slope of while protecting the PCL the posterior soft tissues at all times. An extension block was used to confirm appropriate amount of bony resection. I then sized a #3 tibia and once I was satisfied that there was complete tibial coverage I placed my trial and with the trial femur in place took the knee through range of motion. I was satisfied with the extension and flexion as well as the stability and balance at 0, 30 and 90 degrees. I then turned my attention to the patella where I removed 1 cm from the undersurface of the patella and then trialed 29a patellar button. Again the knee was taken through range of motion I was satisfied with the tracking. I then returned to the femur and drilled my femoral lug holes and prepared the tibia. A femoral bone plug was placed and the knee was irrigated copiously. I then press fit the patella, tibia and femur in standard fashion. I trialed different inserts until I selected a #9 insert. The final insert was placed and a 3 minutes iodine soak with local TXA was performed. A Werewolf cautery wand was used to maintain hemostasis over the capsule and meniscal beds, the gutters and peripatellar soft tissues. The knee was then closed with a running Quill suture, a 3 0 Vicryl and charley on the skin. Patient was then placed in sterile dressing and brought to recovery room in stable condition there were no known complications.
[2024-10-21] MEDS: ceFAZolin Sodium/Dextrose,Iso 2 GM/50 ML PIGGYBACK IV (13:13)
[2024-10-21] MEDS: 0.9 % Sodium Chloride Flush 3 ML SYRINGE IVFLUSH (13:14)
[2024-10-21] MEDS: HYDROmorphone HCl 0.5 MG/0.5 ML SYRINGE 0.25 MG IVPUSH (15:20)
--- NOTE | 2024-10-21 16:06 | P.DS_ITS ---
DS: Providers Provider Date of Service: 10/23/24 Date of discharge: 10/23/24 Primary care physician: Unknown Physician DS: Summary Hospital Course Hospital Course: The patient underwent a successful left total knee arthroplasty, they were transferred to PACU and then to the floor to recover. During their stay, their vitals were stable, afebrile at 98.8. Labs were unremarkable, H/H 10.9/32.9. POD 1 they were started on Aspirin 325mg po bid for DVT ppx, they also received Physical Therapy services twice a day. Prior to discharge, their dressing was changed, incision clean dry and intact, and the plan was to be discharged home with VNA services. Time Attestation Discharge Coordination Time (in mins): Thirty Quality: Safe Use of Opioids Does Pt have an Active Cancer Diagnosis on the Problem List?: No Quality: Stroke Does the patient have a stroke diagnosis?: No Physical Exam Vital Signs: Vital Signs: Last Vital Signs Temp 98.1 F 10/21/24 15:37 Pulse 88 10/21/24 15:37 Resp 20 10/21/24 15:37 BP 125/88 10/21/24 15:37 Pulse Ox 96 10/21/24 15:37 O2 Del Method Room Air 10/21/24 15:37 O2 Flow Rate 6 10/21/24 10:30 BMI result Body Mass Index 29.6 Const: General: cooperative, healthy appearing and no acute distress Resp: Effort & Inspection: normal respiratory effort and able to speak in complete sentences Cardio: Rate: regular rate Peripheral pulses: Peripheral pulses 2+ throughout GI: Palpation (GI): Soft to palpation Skin: Lesions: no lesions Rashes: no rashes Extrem: Other: Left knee dressing is c/d/i. Able to dorsi/plantar flex. Calf is supple and nontender. Sensation intact. Pedal pulse intact. DS: Data Data Completed and Pending Pending studies at discharge: Pending at discharge 10/21/24 08:55 Surgical [PTH] Routine Labs on day of discharge: Laboratory Results - last 24 hr 10/21/24 10/21/24 06:11 06:37 Hgb 11.5 L Hct 35.6 L Urine Test NEGATIVE Discharge Plan Discharge Patient Disposition: Home Health Service Referrals: [facility] [Outside] - 1 Week Luis A Villanueva PA-C [Physician Mincing Machine Operator] - 2 Weeks (11/06/24 09:45 [facility] Luis A Villanueva, JULIANNE) Discharge Medications: New celecoxib 200 mg Capsule 200 mg PO BID 30 Days Qty: 60 0RF acetaminophen 325 mg Tablet 650 mg PO Q6H PRN (Reason: Pain, Mild 1-3,Fever,Headache) 30 Days Qty: 240 0RF aspirin 325 mg Tablet 325 mg PO BID 42 Days Qty: 84 0RF oxycodone 10 mg tablet 10 mg PO Q4H PRN (Reason: Pain, Moderate(Pain Scale 4-6)) 7 Days Qty: 42 0RF Rx Instructions: Partial Fill upon patient request. Continued (DME) walker Misc See Rx Instructions .MEDSUPPLY Qty: 1 0RF Rx Instructions: Folding Front wheeled walker multivitamin Tablet 1 tab PO QAM (DME) Knee Support Brace Misc See Rx Instructions .MEDSUPPLY Qty: 1 0RF Rx Instructions: Playmaker ll , Spacer, wrap , L Discharge Orders: Discharge Order (Routine); Ordered 10/23/24 Ordered By: Aye Quiñonez Diet: Regular diet Activity on Discharge: Use cane or walker Activity Restrictions/Additional Instructions: Physical Therapy for Total knee arthroplasty: WBAT, gait training, ROM 0-12, quad strength * Limit stair climbing * No showering, no tub bath-keep dressing clean, dry and intact * No driving x6 weeks * Continue Aspirin twice a day x 6 weeks * Follow up with [facility] in 2 weeks: 11/06/24 @9:45am with Luis A Villanueva * your first outpatient PT appt is booked for 11/07/24 @11:00am Print Language: Sinhala
--- NOTE | 2024-10-21 16:07 | W.MHC.F2F ---
Service Date Service Date: 10/21/24 Encounter Date of encounter: 10/22/24 Reasons for Services Signs and symptoms assessed: Status post left total knee arthroplasty. Pt. is considered homebound due to recent surgery. Unable to drive, poor balance, poor gait mechanics. Reason for physical therapy: home safety and mobility, therapeutic exercises, restore joint function, gait/transfer training and ADL training Homebound: Leaving the home is medically contraindicated at this time without the asist of a device and/or another person due th the listed conditions above and below. Reason homebound: unsteady gait / fall risk, leg weakness, pain with ambulation, pain with transfers, poor balance / fall risk and unable to drive Certification: Based on the above findings, I certify that this patient is confined to the home and needs intermittent prison care, physical therapy and/or speech therapy, or continues to need occupational therapy. The patient is under my care, and I have initiated the establishment of the plan of care. The patient will be followed by a physician who will periodically review the plan of care. Time Spent With Patient Time: Total time managing care of this patient today ____ minutes.
[2024-10-21] MEDS: oxyCODONE HCl Immed Release 5 MG TABLET PO ×2 (16:38→17:53)
[2024-10-21] MEDS: HYDROmorphone HCl 0.5 MG/0.5 ML SYRINGE IVPUSH (21:26)
[2024-10-21] MEDS: oxyCODONE HCl ER 10 MG TAB.ER.12H PO (21:26)
[2024-10-21] MEDS: Celecoxib 200 MG CAPSULE PO (21:26)
[2024-10-22] MEDS: HYDROmorphone HCl 0.5 MG/0.5 ML SYRINGE IVPUSH ×3 (01:11→15:32)
[2024-10-22] MEDS: Acetaminophen 325 MG TABLET 650 MG PO ×2 (03:21→12:38)
[2024-10-22] MEDS: oxyCODONE HCl Immed Release 5 MG TABLET 10 MG PO ×4 (03:21→20:30)
[2024-10-22 04:00] VITALS: BP 104/55; PULSE 79; RESP 18; TEMP 36.7; O2SAT 94
[2024-10-22 06:53] LABS: MANUAL DIFF FLAG NO
[2024-10-22 06:58] LABS: Basophils Percent Auto 0.2 % (0-2); Hematocrit 29.3 % (37.0-47.0); Hemoglobin 9.6 g/dl (12.0-16.0); Imm Gran Abs Auto 0.08 X10*3/uL (0.00-0.03); Imm Gran Pct Auto 0.5 % (0.0-0.4); Lymphocytes Absolute Auto 1.6 X10*3/uL (1.2-4.9); Lymphocytes Percent Auto 9.8 % (20-40); Mean Corpuscular HGB Conc 32.8 g/dl (31.0-35.0); Mean Corpuscular Hemoglobin 27.4 pg (27.0-33.0); Mean Corpuscular Volume 83.5 fL (80.0-98.0); Mean Platelet Volume 9.4 fL (9.4-12.3); Monocytes Absolute Auto 1.5 X10*3/uL (0.1-1.2); Monocytes Percent Auto 9.2 % (2-11); Neutrophils Absolute Auto 12.7 x10*3/uL (2.0-8.3); Neutrophils Percent Auto 80.3 % (45-73); Platelet Count 269 X10*3/uL (160-400); Red Blood Count 3.51 X10*6/uL (4.20-5.50); White Blood Count 15.9 X10*3/uL (4.8-10.8)
[2024-10-22 07:16] LABS: Anion Gap 7 (12-20); Blood Urea Nitrogen 10 mg/dL (9-16); Calcium 8.3 mg/dL (8.4-10.2); Carbon Dioxide 25 mmol/L (22-29); Chloride 110 mmol/L (96-108); Creatinine Clr Calc Pharmacy 107.8; Estimated Glomerular Filt Rate > 60; Glucose Fasting 109 mg/dL (60-99); Potassium 3.5 mmol/L (3.3-5.1); Sodium 138 mmol/L (135-145)
[2024-10-22] MEDS: Aspirin 325 MG TABLET PO ×2 (07:29→20:30)
--- NOTE | 2024-10-22 07:29 | PM.PNORT ---
Subjective Subjective Date of Service: 10/22/24 Interval history: POD1 s/p LTKA Patient is resting in bed No overnight events Pain is uncontrolled No additional complaints Physical Exam Vital Signs: Vital Signs: Last Vital Signs Temp 98.1 F 10/22/24 04:00 Pulse 79 10/22/24 04:00 Resp 18 10/22/24 04:00 BP 104/55 L 10/22/24 04:00 Pulse Ox 94 10/22/24 04:00 O2 Del Method Room Air 10/22/24 04:00 O2 Flow Rate 6 10/21/24 10:30 BMI result Body Mass Index 29.6 Const: General: cooperative, healthy appearing and no acute distress Resp: Effort & Inspection: normal respiratory effort and able to speak in complete sentences Cardio: Rate: regular rate Peripheral pulses: Peripheral pulses 2+ throughout GI: Palpation (GI): Soft to palpation Skin: Lesions: no lesions Rashes: no rashes Extrem: Other: left knee dressing is c/d/i. Able to dorsi/plantar flex. Calf is supple and nontender. Sensation intact. Pedal pulse intact. Procedures Date of Service Date of Service: 10/22/24 Progress Note: A&P Assessment and plan (1) S/P total knee arthroplasty: Status: Acute Plan Continue pain mgmnt Begin ASA for dvt ppx begin PT for LTKA Dispo planning- PT, pain mgmnt Patient will need ongoing hospitalization for uncontrolled pain Med adjustements made overnight Adding IV tylenol this AM Time Spent With Patient Time: Total time managing care of this patient today ____ minutes. Quality Stroke Does the patient have a stroke diagnosis?: No VTE Prior VTE?: No VTE Risk Level:: Medical - moderate - high VTE Device Contraindication: N/A - Device Ordered VTE Drug Contraindication: N/A - Med Ordered
[2024-10-22] MEDS: Celecoxib 200 MG CAPSULE PO ×2 (07:30→20:31)
[2024-10-22] MEDS: oxyCODONE HCl ER 10 MG TAB.ER.12H PO ×2 (07:30→20:31)
[2024-10-22 07:51] VITALS: BP 113/64; PULSE 82; RESP 18; TEMP 37.1; O2SAT 93
[2024-10-22] MEDS: Acetaminophen 1,000 MG/100 ML PIGGYBACK 400 MG IV ×3 (08:33→21:29)
[2024-10-22] MEDS: ondansetron HCL 4 MG/2 ML VIAL IVPUSH (08:33)
--- NOTE | 2024-10-22 10:29 | HO.POSTANES ---
Post Anesthesia Evaluation Post Anesthesia Evaluation Date of Service: 10/22/24 Vital Signs: Vital Signs Temp Pulse Resp BP Pulse Ox O2 Del Method 10/22/24 07:51 98.7 F 82 18 113/64 93 Room Air 10/22/24 04:00 98.1 F 79 18 104/55 L 94 Room Air Anesthesia: Spinal and General LMA Mental Status: Awake Pain Control: Satisfactory Nausea/Vomiting: None Hydration: Adequate
--- NOTE | 2024-10-22 10:31 | HO.POSTANES ---
Post Anesthesia Evaluation Post Anesthesia Evaluation Date of Service: 10/23/24 Vital Signs: Vital Signs Temp Pulse Resp BP Pulse Ox O2 Del Method 10/22/24 07:51 98.7 F 82 18 113/64 93 Room Air 10/22/24 04:00 98.1 F 79 18 104/55 L 94 Room Air Anesthesia: General Mental Status: Awake Pain Control: Satisfactory Nausea/Vomiting: None Hydration: Adequate Anesthesia-Related Issues: No Anes. Related Issues
--- NOTE | 2024-10-22 10:35 | MHC.CM.PN ---
Addendum entered by Jenny Magallon 10/22/24 10:42: IMM 10/22/24 Original Note: She lives with her spouse. She is independent with all functional mobility. DC is anticipated tomorrow 10/23/24 DP Home with NA. Navigator referral. Patient's spouse will provide transportation. HCP on file.
--- NOTE | 2024-10-22 10:44 | MHC.CM.PN ---
Patient lives with spouse. She is independent with all functional mobility. A HCP is on file. PCP Dr Benavides. Andrea referred to [facility]. They have accepted the case. DP home with [facility] and spouse will transport.
[2024-10-22 12:00] VITALS: BP 134/72; PULSE 80; RESP 16; TEMP 37; O2SAT 98
[2024-10-22 15:41] VITALS: BP 133/76; PULSE 76; RESP 18; TEMP 37.4; O2SAT 95
[2024-10-22 19:24] VITALS: BP 137/85; PULSE 86; RESP 18; TEMP 37.3; O2SAT 96
[2024-10-22 23:56] VITALS: BP 129/62; PULSE 86; RESP 18; TEMP 37; O2SAT 92
[2024-10-23] MEDS: 0.9 % Sodium Chloride Flush 3 ML SYRINGE IVFLUSH ×2 (00:04→10:27)
[2024-10-23 04:00] VITALS: BP 118/76; PULSE 85; RESP 18; TEMP 36.8; O2SAT 93
[2024-10-23 08:00] VITALS: BP 120/67; PULSE 88; RESP 18; TEMP 37.1; O2SAT 96
[2024-10-23 08:41] LABS: MANUAL DIFF FLAG NO
[2024-10-23 08:43] LABS: Basophils Absolute Auto 0.1 X10*3/uL (0.0-0.2); Basophils Percent Auto 0.7 % (0-2); Eosinophils Absolute Auto 0.1 X10*3/uL (0.0-0.4); Eosinophils Percent Auto 0.7 % (0-4); Hematocrit 32.9 % (37.0-47.0); Hemoglobin 10.9 g/dl (12.0-16.0); Imm Gran Abs Auto 0.07 X10*3/uL (0.00-0.03); Imm Gran Pct Auto 0.5 % (0.0-0.4); Lymphocytes Absolute Auto 1.3 X10*3/uL (1.2-4.9); Lymphocytes Percent Auto 9.6 % (20-40); Mean Corpuscular HGB Conc 33.1 g/dl (31.0-35.0); Mean Corpuscular Hemoglobin 27.7 pg (27.0-33.0); Mean Corpuscular Volume 83.7 fL (80.0-98.0); Mean Platelet Volume 9.5 fL (9.4-12.3); Monocytes Absolute Auto 1.3 X10*3/uL (0.1-1.2); Monocytes Percent Auto 9.5 % (2-11); Neutrophils Absolute Auto 10.6 x10*3/uL (2.0-8.3); Platelet Count 301 X10*3/uL (160-400); Red Blood Count 3.93 X10*6/uL (4.20-5.50); Red Cell Distribution Width 15.4 % (11.0-16.0); White Blood Count 13.4 X10*3/uL (4.8-10.8)
[2024-10-23 08:56] LABS: Anion Gap 12 (12-20); Blood Urea Nitrogen 7 mg/dL (9-16); Calcium 8.6 mg/dL (8.4-10.2); Carbon Dioxide 25 mmol/L (22-29); Chloride 107 mmol/L (96-108); Creatinine Clr Calc Pharmacy 114.2; Estimated Glomerular Filt Rate > 60; Glucose Fasting 99 mg/dL (60-99); Potassium 3.6 mmol/L (3.3-5.1); Sodium 140 mmol/L (135-145)
--- NOTE | 2024-10-23 09:21 | MHC.CM.PN ---
Patient is discharged to home with new NA. She has arranged for transportation home. DC info has been sent to [facility].
[2024-10-23] MEDS: Aspirin 325 MG TABLET PO (10:26)
[2024-10-23] MEDS: Celecoxib 200 MG CAPSULE PO (10:26)
[2024-10-23] MEDS: oxyCODONE HCl ER 10 MG TAB.ER.12H PO (10:27)
[2024-10-23] MEDS: oxyCODONE HCl Immed Release 5 MG TABLET 10 MG PO (10:43)
== END 2024-10-23 12:43 | disposition home health service (06) ==
LOC: HO.SSS 10:46 → HO.S3 11:58
PROVIDERS: Nurse Practitioner; Physician Assistant; Visit Provider Orthopaedic Surgery
PROC: (CPT 27447; principal; 2024-10-21 07:30)
DX: M17.12 Unilateral primary osteoarthritis, left knee (principal); G89.29 Other chronic pain; M25.562 Pain in left knee; R26.2 Difficulty in walking, not elsewhere classified; Z79.899 Other long term (current) drug therapy; Z88.4 Allergy status to anesthetic agent; Z88.5 Allergy status to narcotic agent; Z96.651 Presence of right artificial knee joint; Z98.890 Other specified postprocedural states; Z56.0 Unemployment, unspecified
CPT/HCPCS: 27447; 36415; 73560; 80048; 81025; 85014; 85018; 85025; 86850; 86900; 86901; 87640; 87641; 88305; 88311; 97110; 97116; 97161; 97530; C1776; J0131; J0171; J0665; J0690; J1100; J1171; J2003; J2250; J2405; J2704; J7120

== ENCOUNTER → 2024-10-21 05:51 | Outpatient (BNV) | payer OTHER, SELFPAY | PROVIDERS: Visit Provider Orthopaedic Surgery | DX: Z96.659 Presence of unspecified artificial knee joint (principal) | CPT/HCPCS: 27447; 99024; G0180 ==

== ENCOUNTER → 2024-10-21 10:33 | Outpatient (BNV) | payer OTHER, SELFPAY | PROVIDERS: Visit Provider Radiology Diagnostic Radiology | DX: M25.562 Pain in left knee (principal); Z96.652 Presence of left artificial knee joint | CPT/HCPCS: 73560 ==

== ENCOUNTER 2024-11-06 09:37 | Outpatient (AMB) | payer OTHER, SELFPAY ==
--- NOTE | 2024-11-06 09:42 | MHC.OFFVIS ---
Intake Visit Reasons: PO: LT TKA, DOS 10/21/24 NE Intake Note: Nicole is a 49 year old female who presents today for a post operative LT TKA, DOS 10/21/24 NE. Patient reports she is doing well, states her pain has been mild, stating she did not need pain medication today. Allergies bee pollen [bee stings] Allergy (Severe, Verified 11/06/24 09:43) Anaphylaxis lidocaine Allergy (Severe, Verified 11/06/24 09:43) 2nd degree burn of skin morphine Allergy (Intermediate, Verified 11/06/24 09:43) Dizziness/hallucinations Medication List - Last Reconciled 11/06/24 by Luis A Villanueva PA-C acetaminophen 650 mg (2 x 325 mg) PO Q6H PRN 30 days aspirin 325 mg PO BID 42 days celecoxib 200 mg PO BID 30 days leg brace (Knee Support Brace) Playmaker ll , Spacer, wrap , L multivitamin 1 tab PO QAM oxycodone 10 mg PO Q6H PRN 7 days walker Folding Front wheeled walker HPI HPI PO: LT TKA, DOS 10/21/24 NE: Details: 49-year-old female returns to the office today 2 weeks status post left total knee arthroplasty with Dr. Whaley on 10/21/2024. She is doing well and not experiencing much pain. She has her 1st physical therapy appointment at the outpatient clinic tomorrow. She is ambulating with a walker. No concerns today. [facility], [facility] Medical History PONV (postoperative nausea and vomiting) Arthritis Disorder of ligament of foot Rotator cuff arthropathy of both shoulders Surgical History Hx of hemorrhoidectomy Hx of left knee surgery Hx of rotator cuff surgery Hx of foot surgery History of total right knee replacement Hx of hand surgery (~01/2023) Social History Household Members: Spouse Housing: Apartment Are you a primary special needs child caregiver to a significant other at home: No Do you presently have visiting nurse or other home services: No Alcohol intake: never Patient Tobacco Use Status: Never used Tobacco service: No Current occupational status: unemployed Current occupation: Right Handed Review of Systems Const All systems reviewed & are unremarkable except as noted in HPI and below Physical Exam Extrem Other: Left knee incision is clean dry and intact. No erythema no joint effusion. Range of fenmml-76-41 90 degrees. She is able to activate the quad with straight leg raise. Calf supple nontender neurovascularly intact. Assessment & Plan Assessment & Plan (1) S/P total knee arthroplasty: Code(s): Z96.659 - Presence of unspecified artificial knee joint Category: Surgical Plan: [place] removed today Steri-Strips applied. She will continue to work with physical therapy on an outpatient basis to work on motion and strength of the quad. She can increase activities as tolerated wean from the walker when necessary and progress to a cane. No driving for another 4 weeks. She will contact our office if she needs antibiotics for any dental procedures. She will see us back in [address] Whaley, sooner if needed. Medications: Refilled oxycodone Partial Fill upon patient request. 10 mg PO Q6H PRN 28 tabs 0RF Pain, Moderate(Pain Scale 4-6) 7 days Coding Level of Care Code Global (92500) Diagnoses S/P total knee arthroplasty Z96.659
== END 2024-11-06 10:18 | disposition home or self-care (01) ==
PROVIDERS: PCP Nurse Practitioner Family; Visit Provider Physician Assistant
DX: Z96.659 Presence of unspecified artificial knee joint (principal)
CPT/HCPCS: 99024

== ENCOUNTER → 2024-11-06 09:37 | Outpatient (BNVA) | payer OTHER, SELFPAY | PROVIDERS: PCP Nurse Practitioner Family; Visit Provider Physician Assistant | DX: M25.562 Pain in left knee (principal); Z47.1 Aftercare following joint replacement surgery; Z96.652 Presence of left artificial knee joint | CPT/HCPCS: 99212 ==

== ENCOUNTER 2024-11-27 09:28 | Outpatient (AMB) | payer OTHER, SELFPAY ==
--- NOTE | 2024-11-27 09:29 | A.OFFVIS_ITS ---
Intake Visit Reasons: 6WK PO: L TKA w/NE 10/21/24 Intake Note: Nicole is a 49 year old female who presents today for a post operative visit 6 weeks s/p LT TKA, DOS 10/21/24 NE. Patient reports that she is doing well, she is having a pulling sensation/tightness at the incision. She has trouble sleeping at night as she has a hard time getting comfortable. Allergies bee pollen [bee stings] Allergy (Severe, Verified 11/06/24 09:43) Anaphylaxis lidocaine Allergy (Severe, Verified 11/06/24 09:43) 2nd degree burn of skin morphine Allergy (Intermediate, Verified 11/06/24 09:43) Dizziness/hallucinations HPI HPI 6WK PO: L TKA w/NE 10/21/24: Details: Nicole is a 49 year old female who presents today for a post operative visit 6 weeks s/p LT TKA, DOS 10/21/24 NE. Patient reports that she is doing well, she is having a pulling sensation/tightness at the incision. She has trouble sleeping at night as she has a hard time getting comfortable. She is doing physical therapy. She feels like she is improving. Her motion is good. She states she is almost 120 with PT. she has stopped taking aspirin in his taking occasional NSAIDs and occasional Tylenol. [facility] Medical History PONV (postoperative nausea and vomiting) Arthritis Disorder of ligament of foot Rotator cuff arthropathy of both shoulders Surgical History Hx of hemorrhoidectomy Hx of left knee surgery Hx of rotator cuff surgery Hx of foot surgery History of total right knee replacement Hx of hand surgery (~01/2023) Social History Household Members: Spouse Housing: Apartment Are you a primary animal care taker to a significant other at home: No Do you presently have visiting nurse or other home services: No Alcohol intake: never Patient Tobacco Use Status: Never used Tobacco service: No Current occupational status: unemployed Current occupation: Right Handed Physical Exam Extrem Other: Incision well healed. Walking without antalgia. 0-115 degrees of motion. 2 degree extension lag. Assessment & Plan Assessment & Plan (1) S/P total knee arthroplasty: Code(s): Z96.659 - Presence of unspecified artificial knee joint Category: Surgical Plan: Status post total knee replacement doing well. Continue PT. Follow up 6 weeks. She has discontinued her aspirin. No complications . Coding Level of Care Code Global (25788) Diagnoses S/P total knee arthroplasty Z96.659
--- OUTSIDE RECORDS SUMMARY | 2024-11-27 09:52 | XMS_ITS | Clinical Summary ---
Author Organization [facility] [address] [facility] [address] Address [address] [place] [address] Phone Care Team Providers Care Battery Charger Tester Name Role Phone Malka Montoya MD Primary Care Prov ider Allergies Active Allergy Reactions Criticality Noted Date Comments Bee Venom Protein (Honey Bee) 02/01/2021 Bee Venom Lidocaine High 01/28/2024 Other Reaction(s): OTHER Topical lidocaine- Caused second degree ly Morphine 07/14/2019 disoriented Medications EPINEPHrine (EpiPen 2-Tarun) 0.3 mg/0.3 mL injection Inject 0.3 mg into the muscle as needed for Other (anaphylactic reaction). 2-pack. Fill with whichever brand is covered by insurance. Active multivit-min/fe rrous fumarate (MULTI VITAMIN ORAL) Multiple Vitamin (MULTI VITAMIN) Tab Take by mouth daily. Active Active Problems Problem Noted Date Diagnosed Date No known problems 09/22/2024 Encounters Date Type Department Care Team Description 09/30/2024 10:00 AM EST Consult Adult Medicine - [place] [address] [place] [address] Malka Montoya MD Preop examination (Primary Dx); Chronic pain of left knee; Preoperative examination from Last 3 Months Immunizations Name Administration Dates Next Due Influenza trivalent, 0.5mL, preservative free (Fluarix; FluLaval; Fluzone) ages 6mo and older (Afluria) 3 years and older 09/05/2010 Surgical History Surgery Date Site/Laterality Comments TOTAL KNEE ARTHROPLASTY 03/20/2017 Right PROCEDURE: HISTORICAL TOTAL KNEE REPLACE OTHER SURGICAL HISTORY 10/18/2017 Right PROCEDURE: HISTORY OTHER; COMMENT: Right shoulder arthroscopic surgery, [facility] OTHER SURGICAL HISTORY 10/30/2019 Right PROCEDURE: WI RPR TENDON FLXR FOOT SEC W/FREE GRAFT EA TENDON; COMMENT: EHL tendon repair with integra graft Family History Medical History Relation Name Comments Diabetes Mother Relation Name Status Comments Brother Alive Father Alive Mother Alive Son Alive Social History Tobacco Use Types Packs/Day Years Used Date Smoking Tobacco: Never Smokeless Tobacco: Never Tobacco Cessation:Counseling Given: Not Answered Alcohol Use Standard Drinks/Week Comments No 0 (1 standard drink = 0.6 oz pur e alcohol) Housing Instability Answer Date Recorde d Are you worried that in the next 2 months you may not have stable housing? No 09/29/2024 Food Access & Nutrition Answer Date Rec orded Do you have access to a vari ety of food including fruits and vegetables? Yes 09/29/2024 Access to Healthcare Answer Date Record ed Within the last 3 months, ho w many times did you visit the emergency department for your medical care? 0 09/29/2024 Health Literacy Answer Date Recorded How often do you need to hav e someone help you when you read instructions, pamphlets, or other written material from your doctor or pharmacy? Never 09/29/2024 Caregiver: How often do you need to have someone help you when you read instructions, pamphlets, or other written material from your doctor or pharmacy? Not on file 09/29/2024 Financial Risk Answer Date Recorded How hard is it for you to pa y for the very basics like food, housing, medical care, and air conditioning / heating? Patient declined 09/29/2024 Transportation Answer Date Recorded Has the lack of transportati on kept you from meetings, work, or from getting things needed for daily living? No Has the lack of transportati on kept you from medical appointments or from getting medications? No 09/29/2024 Social Isolation Answer Date Recorded How often do you feel lonely or isolated from th ose around you? Rarely 09/29/2024 Food Risk Answer Date Recorded Within the past 12 months we worried whether our food would run out before we got money to buy more. Never true 09/29/2024 Within the past 12 months th e food we bought just didn't last and we didn't have money to get more. Never true 09/29/2024 Dependent Care Answer Date Recorded Do you need help finding or paying for care for your loved ones. For example, child care giver or elderly care for an older adult? No 09/29/2024 Education Answer Date Recorded Do you think completing more education or training, like finishing a GED, going to college, or learning a trade, would be helpful for you? Patient declined 09/29/2024 Employment and Income Answer Date Recor ded During the last four weeks, have you been actively looking for work? Yes 09/29/2024 Living Situation Answer Date Recorded What is your living situation? 1 11/30/2023 Comments No Sex and Gender Information Value Date Recorded Sex Assigned at Not on file Legal Sex Female 4:09 PM EST Gender Identity Not on file Sexual Orientation Not on file Obstetrics History Last Filed Vital Signs Vital Sign Reading Time Taken Comments Blood Pressure 131/86 09/30/2024 10:24 AM EST Pulse 88 09/30/2024 10:24 AM EST Temperature 36.2 ??C (97.1 ??F) 09/30/2024 10:[address] Respiratory Rate - - Oxygen Saturation - - Inhaled Oxygen Concentration - - Weight 89.5 kg (197 lb 6.4 oz) 09/30/2024 10:24 AM EST Height 170.2 cm (5' 7 ) 03/14/2024 2:56 PM EDT Body Mass Index 30.92 03/14/2024 2:56 PM EDT Plan of Treatment Health Maintenance Due Date Last Done Comments Breast Cancer Screening 1975 DTaP,Tdap,and Td Vaccines (1 - Tdap) 1994 Hepatitis B Vaccines (1 of 3 - 19+ 3-dose series) 1994 Cervical Cancer Screening: Pap Smear 09/05/2013 09/05/2010 Colorectal Cancer Screening: Colonoscopy 09/13/2022 Hepatitis C Screening 09/13/2022 COVID-19 Vaccine ( season) 2024 03/21/2021, 02/28/2021 Influenza Vaccine (#1) 2024 0, 08/01/2019, 11/12/2017, Additional history exists Depression Screening 09/29/2025 09/29/2024, 01/28/20 24 Social Influencers of Health Screening 09/29/2025 09/29/2024 HIV Screening Completed 08/26/2010 HIB Vaccines Aged Out No longer eligi ble based on patient's age to complete this topic HPV Vaccines Aged Out No longer eligi ble based on patient's age to complete this topic Hepatitis A Vaccines Aged Out No long er eligible based on patient's age to complete this topic IPV Vaccines Aged Out No longer eligi ble based on patient's age to complete this topic MMR Vaccines Aged Out No longer eligi ble based on patient's age to complete this topic Meningococcal ACWY Vaccine Aged Out N o longer eligible based on patient's age to complete this topic Meningococcal B Vacine Aged Out No lo nger eligible based on patient's age to complete this topic Pneumococcal Vaccine: Pediatrics (0 to 5 Years) and At-Risk Patients (6 to 64 Years) Aged Out No longer eligible based on patient's age to complete this topic RSV Immunization Patients Under 20 months Aged Out No longer eligible based on patient's age to complete this topic Varicella Vaccines Aged Out No longer eligible based on patient's age to complete this topic Procedures Procedure Name Priority Date/Time Associated Diagnosis Comments CBC WITH AUTO DIFFERENTIAL Routine 09/30/2024 10:53 AM EST Preoperative examination CBC AND DIFFERENTIAL Routine 09/30/2024 10:53 AM EST Preoperative examination BASIC METABOLIC PANEL Routine 09/30/2024 10:53 AM EST Preoperative examination DEPRESSION SCREENING Routine 01/28/2024 HM PAP SMEAR Routine 09/05/2010 HIV SCREENING Routine 08/26/2010 from Last 3 Months or Most Recently Relevant to Health Maintenance Results * (ABNORMAL) CBC auto differential (09/30/2024 10:53 AM EST) WBC 8.6 4.8 - 10.8 K/mcL LAB HEMETOLOGY METHOD 09/30/2024 12:17 PM [facility] RBC 4.40 3.80 - 4.80 M/mcL LAB HEMETOLOGY METHOD 09/30/2024 12:17 PM [facility] Hemoglobin 11.8 11.5 - 16.0 g/dL LAB HEMETOLOGY METHOD 09/30/2024 12:17 PM [facility] Hematocrit 37.1 35.0 - 47.0 % LAB HEMETOLOGY METHOD 09/30/2024 12:17 PM [facility] MCV 85.3 79.0 - 98.0 FL LAB HEMETOLOGY METHOD 09/30/2024 12:17 PM [facility] MCH 27.1 27.0 - 32.0 pcg LAB HEMETOLOGY METHOD 09/30/2024 12:17 PM [facility] MCHC 31.8(L) 32.0 - 37.0 g/dL LAB HEMETOLOGY METHOD 09/30/2024 12:17 PM [facility] RDW 14.4 11.0 - 15.0 % LAB HEMETOLOGY METHOD 09/30/2024 12:17 PM [facility] Platelets 339 130 - 400 K/mcL LAB HEMETOLOGY METHOD 09/30/2024 12:17 PM [facility] MPV 9.7 7.0 - 11.0 FL LAB HEMETOLOGY METHOD 09/30/2024 12:17 PM [facility] NRBC 0.0 <1.0 % LAB HEMETOLOGY METHOD 09/30/2024 12:17 PM [facility] NRBC Absolute 0.00 <0.10 K/mcL LAB HEMETOLOGY METHOD 09/30/2024 12:17 PM [facility] Neutrophils Relative 67.0 % LAB HEMETOLOGY METHOD 09/30/2024 12:17 PM [facility] Lymphocytes Relative 19.7 % LAB HEMETOLOGY METHOD 09/30/2024 12:17 PM [facility] Monocytes Relative 7.5 % LAB HEMETOLOGY METHOD 09/30/2024 12:17 PM [facility] Eosinophils Relative 4.1 % LAB HEMETOLOGY METHOD 09/30/2024 12:17 PM [facility] Basophils Relative 1.2 % LAB HEMETOLOGY METHOD 09/30/2024 12:17 PM [facility] Immature Granulocytes Relative 0.5 % LAB HEMETOLOGY METHOD 09/30/2024 12:17 PM [facility] Neutrophils Absolute 5.75 1.50 - 7.00 K/mcL LAB HEMETOLOGY METHOD 09/30/2024 12:17 PM [facility] Lymphocytes Absolute 1.69 1.00 - 5.00 K/mcL LAB HEMETOLOGY METHOD 09/30/2024 12:17 PM [facility] Monocytes Absolute 0.64 0.20 - 1.00 K/mcL LAB HEMETOLOGY METHOD 09/30/2024 12:17 PM [facility] Eosinophils Absolute 0.35 0.00 - 0.50 K/mcL LAB HEMETOLOGY METHOD 09/30/2024 12:17 PM [facility] Basophils Absolute 0.10 0.00 - 0.20 K/mcL LAB HEMETOLOGY METHOD 09/30/2024 12:17 PM [facility] Immature Granulocytes Absolute 0.04(H) 0.00 - 0.03 K/mcL LAB HEMETOLOGY METHOD 09/30/2024 12:17 PM [facility] Blood Venous blood specimen / Unknown Venipuncture / Unknown 09/30/2024 10:53 AM EST 09/30/2024 10:53 AM EST us Malka Montoya MD LAB BLOOD ORDERABL ES Final Result [facility] [address] [place] [address], * (ABNORMAL) Basic metabolic panel (09/30/2024 10:53 AM EST) Sodium 140 133 - 145 mmol/L LAB CHEMISTRY METHOD 09/30/2024 1:01 PM [facility] Potassium 3.8 3.5 - 5.5 mmol/L LAB CHEMISTRY METHOD 09/30/2024 1:01 PM [facility] Chloride 110 96 - 110 mmol/L LAB CHEMISTRY METHOD 09/30/2024 1:01 PM [facility] CO2 28 21 - 32 mmol/L LAB CHEMISTRY METHOD 09/30/2024 1:01 PM [facility] Anion Gap 2(L) 3 - 11 LAB CHEMISTRY METHOD 09/30/2024 1:01 PM [facility] Glucose 90 70 - 100 mg/dL LAB CHEMISTRY METHOD 09/30/2024 1:01 PM [facility] BUN 11 5 - 25 mg/dL LAB CHEMISTRY METHOD 09/30/2024 1:01 PM [facility] Creatinine 0.78 0.50 - 1.10 mg/dL LAB CHEMISTRY METHOD 09/30/2024 1:01 PM [facility] eGFR 93 >=60 mL/min/1. 73m2 LAB CHEMISTRY METHOD 09/30/2024 1:01 PM [facility] Comment:Calculation based on the??Chronic Kidney Disease Epidemiology Collaboration (CKD-EPI) equation refit??without adjustment for race. BUN/Creatinine Ratio 14.1 LAB CHEMISTRY METHOD 09/30/2024 1:01 PM [facility] Calcium 9.0 8.5 - 10.5 mg/dL LAB CHEMISTRY METHOD 09/30/2024 1:01 PM EST [facility] Blood Venous blood specimen / Unknown Venipuncture / Unknown 09/30/2024 10:53 AM EST 09/30/2024 10:53 AM EST Malka Montoya MD LAB BLOOD ORDERABL ES Final Result [facility] [address] [place] [address], * Depression Screening (01/28/2024) Depression Screening abstracted Historical Provider HEALTH MAINTENANCE Final Result * Pap Smear (09/05/2010) Pap smear negative, abstracted Historical Provider HEALTH MAINTENANCE Final Result * HIV Screening (08/26/2010) Pathologist [facility] HIV Screening abstracted Historical Provider HEALTH MAINTENANCE Final Result from Last 3 Months or Most Recently Relevant to Health Maintenance Insurance [facility] [place] [address] Care Teams Battery Charger Tester Relationship Specialty Start Date End Date Malka Montoya MD [address] [place] [id number] PCP - General 08/16/10
== END 2024-11-27 10:01 | disposition home or self-care (01) ==
PROVIDERS: PCP Nurse Practitioner Family; Visit Provider Orthopaedic Surgery
DX: Z96.659 Presence of unspecified artificial knee joint (principal)
CPT/HCPCS: 99024

== ENCOUNTER → 2024-11-27 09:28 | Outpatient (BNVA) | payer OTHER, SELFPAY | PROVIDERS: PCP Nurse Practitioner Family; Visit Provider Orthopaedic Surgery | DX: Z47.89 Encounter for other orthopedic aftercare (principal); Z96.659 Presence of unspecified artificial knee joint | CPT/HCPCS: 99212 ==

== ENCOUNTER 2024-12-16 14:40 | Outpatient (RCR) | payer OTHER, SELFPAY ==
--- NOTE | 2024-11-07 14:17 | MHC.PT.EP ---
[facility] [place] Office [place] Office [place] Office [address] [phone] F: [phone] F: [phone] F: [phone] F: [phone] Physical Therapy Plan of Care Date of Evaluation: 11/07/24 Date of Surgery: 10/21/24 Diagnosis: S/P LEFT TKA W/ NE (KP) Assessment: DEJAH IS A PLEASANT 49 YO FEMALE WHO PRESENTS POD 17 PT EVALUATION. UPON EXAM SHE DEMONSTRATES THE EXPECTED IMPAIRMENTS OF DECREASED ROM, DECREASED STRENGTH, ALTERED POSTURE AND POSITIONING,ALTERED GAIT AND BALANCE, AND INCREASED PAIN AND EDEMA. FUNCTIONAL LIMITATIONS INCLUDE DECREASED ABILITY TO PERFORM HOMEMAKING AND SELF-CARE TASKS, DECREASED ABILITY TO PERFORM WALKING, RUNNING, JUMPING AND SQUATTING, INABILITY TO DRIVE AND PERFORM WORK TASKS, DECREASED PARTICIPATION IN COMMUNITY AND RECREATIONAL ACTIVITIES AND DISRUPTED SLEEP. THE Pt IS A GOOD CANDIDATE FOR SKILLED PT DUE TO AGE, POTENTIAL REMEDIATION OF IMPAIRMENTS, TYPICAL DISEASE/CONDITION PROGRESSION AND PROGNOSIS, COMORBIDITIES, AND MOTIVATION. PT WOULD BENEFIT FROM TAILORED PROGRAM OF THERAPEUTIC ACTIVITIES, FUNCTIONAL TRAINING, GAIT TRAINING, POSTURAL EDUCATION, NEUROMUSCULAR RE-EDUCATION, AND MODALITIES NEEDED. Frequency and Duration: The patient will be seen 2 X WEEK FOR 8 WEEKS Short Term Goals: INITIATE HEP AND PROMOTE SELF MANAGEMENT OF SYMPTOMS Diet Counselor Goals: TO DEMONSTRATE FULL KNEE ROM, EQUAL JACQUE TO DEMONSTRATE FULL LE STRENGTH, EQUAL JACQUE TOSTAIRS WITH RECIPROCAL GAIT WITHOUT PAIN GREATER THAN 2/10 TO AMBULATE AD VALENTINO ON LEVEL AND UNEVEN SURFACES FOR FITNESS WITHOUT PAIN GREATER THAN 2/10 Treatment Plan: Modalities to reduce pain, spasms and effusion. Manual therapy to restore motion and function. Therapeutic exercise to improve strength and flexibility. Neuromuscular re-education for posture and balance. Therapeutic activities to return to functional activities of daily living. Electronically signed by: TRAV RAMOS PT DPT Please sign and return to therapist. Thank you for your referral.
== END 2025-01-29 10:54 | disposition home or self-care (01) ==
LOC: HO.PT 14:40
PROVIDERS: PCP Internal Medicine; Visit Provider Physician Assistant
DX: Z96.652 Presence of left artificial knee joint (principal)
CPT/HCPCS: 97110; 97161; 97530

== ENCOUNTER 2025-01-08 08:42 | Outpatient (REF) | payer OTHER, SELFPAY | END 2025-01-08 08:43 | disposition home or self-care (01) | LOC: HO.HOSX 08:42 | PROVIDERS: Visit Provider Orthopaedic Surgery | DX: Z13.89 Encounter for screening for other disorder (principal) ==

== ENCOUNTER 2025-01-22 08:23 | Outpatient (REF) | payer OTHER, SELFPAY ==
--- NOTE | ~2025-01-22 | XR_ITS ---
EXAMINATION: XR KNEE 3 VIEWS LEFT HISTORY: M25.562 - Pain in left knee COMPARISON: Comparison is made with the prior examination dated 10/21/2024. FINDINGS: Standing AP views of both knees and additional lateral and sunrise patellar views of the left knee are submitted. The patient is again noted to be status post total knee arthroplasty. The orthopedic elements are in anatomic alignment. There is no radiographic evidence of loosening. There is no fracture or dislocation. The patient is also status post right total knee arthroplasty. There is no joint effusion. XR/XR knee LT 3V IMPRESSION: Status post left total knee arthroplasty. Electronically signed by: Otis Pike MD 01/22/2025 10:04 AM EDT
--- OUTSIDE RECORDS SUMMARY | 2025-01-22 08:34 | XMS_ITS | Clinical Summary ---
Author Organization [facility] [address] [facility] lding Address [address] [place] [address] Phone Care Team Providers Care Chronic Manager Name Role Phone Malka Montoya MD Primary [...] Date Diagnosed Date No known problems 09/22/2024 Immunizations Name Administration Dates Next Due Influenza trivalent, 0.5mL, preservative free (Fluarix; FluLaval; Fluzone) ages 6mo and older (Afluria) 3 years and older 09/05/2010 Surgical History Surgery Date Site/Laterality Comments TOTAL KNEE ARTHROPLASTY 03/20/2017 Right PROCEDURE: HISTORICAL TOTAL KNEE REPLACE OTHER SURGICAL HISTORY 10/18/2017 Right PROCEDURE: HISTORY OTHER; COMMENT: Right shoulder arthroscopic surgery, [facility] OTHER SURGICAL HISTORY 10/30/2019 Right PROCEDURE: NM RPR TENDON FLXR FOOT SEC W/FREE GRAFT [...] care for your loved ones. For example, director child abuse therapy or elderly care for an older adult? [...] ( season) 2024 03/21/2021, 02/28/2021 Influenza Vaccine (Season Ended) 2025 08/31/2020, 08/01/2019, 11/12/2017, Additional history exists Depression Screening [...] age to complete this topic Meningococcal B Vaccine Aged Out No l onger eligible based on patient's age to complete [...] Procedure Name Priority Date/Time Associated Diagnosis Comments DEPRESSION SCREENING Routine 01/28/2024 PAP SMEAR Routine 09/05/2010 HIV SCREENING Routine 08/26/2010 from Last 3 Months or Most Recently Relevant to Health Maintenance Results * Depression Screening (01/28/2024) Depression Screening abstracted [facility] Provider HEALTH MAINTENANCE Final Result * Pap Smear (09/05/2010) Pap smear negative, abstracted Historical Provider HEALTH MAINTENANCE Final Result * HIV Screening (08/26/2010) Pathologist [facility] HIV Screening abstracted [facility] Provider HEALTH MAINTENANCE Final Result from Last 3 Months or Most Recently Relevant to Health Maintenance Insurance [facility] [employer] Care Teams Chronic Manager Relationship Specialty Start Date End Date Malka Montoya MD [address] [place] [id number] PCP - General 08/16/10
== END 2025-01-22 08:24 | disposition home or self-care (01) ==
LOC: HO.HOSX 08:23
PROVIDERS: Visit Provider Orthopaedic Surgery
DX: M25.562 Pain in left knee (principal); Z96.659 Presence of unspecified artificial knee joint
CPT/HCPCS: 73562; 99212

== ENCOUNTER 2025-01-22 09:47 | Outpatient (AMB) | payer OTHER, SELFPAY ==
--- NOTE | 2025-01-22 09:50 | A.OFFVIS_ITS ---
Intake Visit Reasons: OV L TKA w/NE 10/21/24 Intake Note: Nicole is a 49 year old female who presents today for a post operative visit about 4 months s/p LT TKA, DOS 10/21/24 NE. Patient reports that she is having continued discomfort with the left knee. The knee is visually swollen, she has a hard time sleeping at night due to pain and has instability. She feels frustrated that she is not doing better Allergies bee pollen [bee stings] Allergy (Severe, Verified 01/22/25 10:13) Anaphylaxis lidocaine Allergy (Severe, Verified 01/22/25 10:13) 2nd degree burn of skin morphine Allergy (Intermediate, Verified 01/22/25 10:13) Dizziness/hallucinations HPI HPI OV L TKA w/NE 10/21/24: Details: Three months status post left knee replacement. She is doing well for the most part but still with some pain at night. Denies fevers and chills. Swelling has improved. [facility] Medical History PONV (postoperative nausea and vomiting) Arthritis Disorder of ligament of foot Rotator cuff arthropathy of both shoulders Surgical History Hx of hemorrhoidectomy Hx of left knee surgery Hx of rotator cuff surgery Hx of foot surgery History of total right knee replacement Hx of hand surgery (~01/2023) Social History Household Members: Spouse Housing: Apartment Are you a primary palliative care specialist to a significant other at home: No Do you presently have visiting nurse or other home services: No Alcohol intake: never Patient Tobacco Use Status: Never used Tobacco service: No Current occupational status: unemployed Current occupation: Right Handed Physical Exam Extrem Other: Incision clean dry and intact. 0-125 degrees of motion. Stable to varus and valgus stress. No effusion. Assessment & Plan Assessment & Plan (1) S/P total knee arthroplasty: Code(s): Z96.659 - Presence of unspecified artificial knee joint Category: Surgical Plan: Status post knee replacement on the left doing well. Occasional pain at night. I recommend Celebrex. This was sent to her pharmacy. She tolerated this previously. She does not tolerate non selective NSAIDs. Orders: Orders XR knee LT 3V Today M25.562 - Pain in left knee Coding Level of Care Code Global (68102) Diagnoses S/P total knee arthroplasty Z96.659
--- OUTSIDE RECORDS SUMMARY | 2025-01-22 11:04 | XMS_ITS | Clinical Summary ---
Author Organization [facility] [address] [facility] lding Address [address] [place] [address] Phone Care Team Providers Care Grain Commodity Manager Name Role Phone Malka Montoya MD [...] HISTORY OTHER; COMMENT: Right shoulder arthroscopic surgery, [facility] OTHER SURGICAL HISTORY 10/30/2019 Right PROCEDURE: [place] RPR TENDON FLXR FOOT SEC W/FREE GRAFT [...] care for your loved ones. For example, salesperson children's shoes or elderly care for an older adult? [...] * Depression Screening (01/28/2024) Depression Screening abstracted [facility] Provider HEALTH MAINTENANCE Final Result * Pap Smear (09/05/2010) Pap smear negative, abstracted Historical Provider HEALTH MAINTENANCE Final Result * HIV Screening (08/26/2010) Pathologist [facility] HIV Screening abstracted [facility] Provider HEALTH MAINTENANCE Final Result from Last 3 Months or Most Recently Relevant to Health Maintenance Insurance [place] [phone] Care Teams Grain Commodity Manager Relationship Specialty Start Date End Date Malka Montoya MD [address] [place] [id number] PCP - General 08/16/10
== END 2025-01-22 10:21 | disposition home or self-care (01) ==
LOC: HO.HOS 09:47
PROVIDERS: PCP Nurse Practitioner Family; Visit Provider Orthopaedic Surgery
DX: Z47.1 Aftercare following joint replacement surgery (principal); Z96.652 Presence of left artificial knee joint
CPT/HCPCS: 99213

== ENCOUNTER → 2025-01-22 09:49 | Outpatient (BNV) | payer OTHER, SELFPAY | PROVIDERS: Visit Provider Radiology Diagnostic Radiology | DX: M25.562 Pain in left knee (principal) | CPT/HCPCS: 73562 ==

== ENCOUNTER 2025-05-25 14:18 | Outpatient (AMB) | payer OTHER, SELFPAY ==
--- NOTE | 2025-05-25 14:15 | MHC.OFFVIS ---
Intake Visit Reasons: Telehealth-L TKA w/NE 10/21/24 follow-up Allergies bee pollen (bee stings) Allergy (Severe, Verified 01/22/25 10:13) Anaphylaxis lidocaine Allergy (Severe, Verified 01/22/25 10:13) 2nd degree burn of skin morphine Allergy (Intermediate, Verified 01/22/25 10:13) Dizziness/hallucinations HPI HPI Telehealth-L TKA w/NE 10/21/24 follow-up: Details: Nicole is 7 months status post left knee replacement. She is doing well. She states she has some soreness but for the most part feels like her knees continuing to get stronger. She denies fevers and chills. PFSH Medical History PONV (postoperative nausea and vomiting) Arthritis Disorder of ligament of foot Rotator cuff arthropathy of both shoulders Surgical History Hx of hemorrhoidectomy Hx of left knee surgery Hx of rotator cuff surgery Hx of foot surgery History of total right knee replacement Hx of hand surgery (~01/2023) Social History Household Members: Spouse Housing: Apartment Are you a primary hospice care sales consultant to a significant other at home: No Do you presently have visiting nurse or other home services: No Alcohol intake: never Patient Tobacco Use Status: Never used Tobacco service: No Current occupational status: unemployed Current occupation: Right Handed Telehealth Telehealth Telehealth Platform: Telephone Location of provider rendering services: practice address Location of patient: address on file Patient Identification confirmed using: Name, : Yes Telehealth method: voice only Patient verbally consented to treatment: Yes Patient verbally consented to billing insurance company: Yes Patient informed of any privacy concerns related to visit: Yes Minutes spent on Phone/Video with Pt.: 5 Assessment & Plan Assessment & Plan (1) S/P total knee arthroplasty: Code(s): Z96.659 - Presence of unspecified artificial knee joint Category: Surgical Plan: Status post left knee replacement doing well. Follow up PRN. Discussed dental prophylaxis. Coding Level of Care Code Tele Est Pt Level 2 (22102) Diagnoses S/P total knee arthroplasty Z96.659
--- OUTSIDE RECORDS SUMMARY | 2025-05-25 14:49 | XMS_ITS | Clinical Summary ---
Author Organization [facility] [address] [facility] l[address] Address [address] [place] [address] Phone Care Team Providers Care Division Plant Engineer Name Role Phone Malka Montoya MD Primary [...] HISTORY OTHER; COMMENT: Right shoulder arthroscopic surgery, [facility] OTHER SURGICAL HISTORY 10/30/2019 Right PROCEDURE: ID RPR TENDON FLXR FOOT SEC W/FREE GRAFT [...] your loved ones. For example, child care education coordinator or elderly care for an older adult? [...] 88 09/30/2024 10:24 AM EST Temperature 36.2 C (97.1 F) 09/30/2024 10:24 AM EST Respiratory Rate - - Oxygen Saturation - [...] 09/13/2022 Hepatitis C Screening 09/13/2022 COVID-19 Vaccine (3 - season) 2024 03/21/2021, 02/28/2021 Depression Screening 10/15/2024 09/29/2024, 01/28/20 24 Pneumococcal Vaccine: 50+ Years (1 of 1 - PCV) 2025 Zoster Vaccines (1 of 2) 2025 Influenza Vaccine (#1) 2025 , 08/01/2019, 11/12/2017, Additional history exists Social Influencers of Health Screening 09/29/2025 09/29/2024 [...] * Depression Screening (01/28/2024) Depression Screening abstracted [facility] Provider HEALTH MAINTENANCE Final Result * Pap Smear (09/05/2010) Pap smear negative, abstracted Historical Provider HEALTH MAINTENANCE Final Result * HIV Screening (08/26/2010) HIV Screening abstracted Historical Provider HEALTH MAINTENANCE Final Result from Last 3 Months or Most Recently Relevant to Health Maintenance Insurance [employer] Care Teams Division Plant Engineer Relationship Specialty Start Date End Date Malka Montoya MD [address] [place] [id number] PCP - General 08/16/10
== END 2025-05-25 14:30 | disposition home or self-care (01) ==
LOC: HO.HOS 14:18
PROVIDERS: Visit Provider Orthopaedic Surgery
DX: Z47.1 Aftercare following joint replacement surgery (principal); Z96.652 Presence of left artificial knee joint
CPT/HCPCS: 99212